=== PATIENT | female | born 1935 | race Caucasian/White ===

== ENCOUNTER 2017-03-17 11:14 | Emergency (ER) | payer MEDICARE, MEDICAID ==
[~2017-03-17] VITALS: Ht 157.5 cm; Wt 65.0 kg
[~2017-03-17 11:14] MED LIST: ASPI-518 PO; ATEN-42 PO; ATOR10TA69 PO; CALC0.5C10 PO; DOCU-150 PO; ERGO500013 PO; FURO40TA5 PO; GABA-531 PO; LEVEMIR SUBCUT; LEVVL SQ; LISI-186 PO; MECL-109 PO; NOVOLOG INSULIN SUBCUT; RIVA10TA PO
[2017-03-17 12:55] LABS: BASOPHILS % 0.2 % (0.0-2.0); EOSINOPHILS % 0.6 % (0.0-5.0); HEMATOCRIT. 31.9 % (36.0-48.0); HEMOGLOBIN. 10.7 g/dL (12.0-16.0); LYMPHOCYTES % 10.2 % (20.0-50.0); MEAN CORPUSCULAR HEMOGLOBIN 32.9 pg (28.0-32.0); MEAN CORPUSCULAR VOLUME 97.7 fL (81.0-99.0); MONOCYTES % 10.1 % (2.0-8.0); NEUTROPHILS % 78.9 % (40.0-76.0); PLATELET 185 x1000/uL (130-400); RED BLOOD CELL COUNT 3.26 mill/uL (4.2-5.4); RED CELL DISTRIBUTION WIDTH 12.5 % (11.6-14.6)
[2017-03-17] MEDS ORDERED: ACETAMINOPHEN 325MG TABLET PO ONE (14:00)
[2017-03-17] MEDS ORDERED: DEXTROSE 50% WATER 50ML SYRINGE IV ONE (14:00)
[2017-03-17 16:48] LABS: CLARITY URINE CLEAR (CLEAR); COLOR URINE YELLOW (YELLOW); KETONES URINE NEGATIVE (NEGATIVE); LEUKOCYTE ESTERASE URINE NEGATIVE (NEGATIVE); NITRITE URINE NEGATIVE (NEGATIVE); OCCULT BLOOD URINE NEGATIVE (NEGATIVE); PROTEIN URINE NEGATIVE (NEGATIVE); SPECIFIC GRAVITY URINE 1.019 (1.005-1.030)
[2017-03-17] MEDS ORDERED: CEFTRIAXONE SODIUM 1 G/VIAL IM NR (17:00)
[2017-03-17] MEDS ORDERED: DEXTROSE 50% WATER 50ML SYRINGE IV NR (17:00)
[2017-03-17] MEDS ORDERED: LIDOCAINE HCL 1% 10 MG/ML 10ML VIAL INJ NR (17:15)
[2017-03-17 17:34] VITALS: BP 124/52
== END 2017-03-17 17:37 | disposition home or self-care (01) ==
LOC: ER 11:14
DX: S92.411A Displaced fracture of proximal phalanx of right great toe, initial encounter for closed fracture (principal); T38.3X5A Adverse effect of insulin and oral hypoglycemic [antidiabetic] drugs, initial encounter; E16.0 Drug-induced hypoglycemia without coma; E11.9 Type 2 diabetes mellitus without complications; J18.9 Pneumonia, unspecified organism; J44.0 Chronic obstructive pulmonary disease with (acute) lower respiratory infection; I50.9 Heart failure, unspecified; I48.91 Unspecified atrial fibrillation; Z79.82 Long term (current) use of aspirin; Z79.4 Long term (current) use of insulin; W01.0XXA Fall on same level from slipping, tripping and stumbling without subsequent striking against object, initial encounter; Y93.89 Activity, other specified; Y92.89 Other specified places as the place of occurrence of the external cause; Y99.8 Other external cause status
CPT/HCPCS: 36415; 70450; 71045; 73060; 73620; 80048; 81003; 82962; 85025; 87040; 87086; 87804; 99285

== ENCOUNTER 2017-12-05 07:30 | Inpatient (IN) | payer MEDICARE, MEDICAID ==
[~2017-12-05] VITALS: Ht 165.1 cm; Wt 70.8 kg
[2017-12-05 08:11] LABS: HEMATOCRIT. 36.4 % (36.0-48.0); HEMOGLOBIN. 12.4 g/dL (12.0-16.0); MEAN CORPUSCULAR HEMOGLOBIN 33.6 pg (28.0-32.0); MEAN CORPUSCULAR VOLUME 98.3 fL (81.0-99.0); MEAN PLATELET VOLUME 7.1 fl (7.4-10.4); PLATELET 186 x1000/uL (130-400); RED CELL DISTRIBUTION WIDTH 12.4 % (11.6-14.6)
[2017-12-05 08:16] LABS: CHLORIDE 103 mEq/L (98-107)
[2017-12-05 08:27] LABS: CREATINE KINASE 134 IU/L (26-192)
[2017-12-05 08:58] LABS: INR 1.1; PROTHROMBIN TIME 11.3 sec (9.1-11.1)
[2017-12-05] MEDS: IPRATROPIUM/ALBUTEROL 0.5-3(2.5)MG/3ML NEB INH SCH ×2 (09:00→21:49)
[2017-12-05 09:44] LABS: PLATELET ESTIMATE NORMAL
[2017-12-05] MEDS ORDERED: ONDANSETRON HCL 4MG/2ML INJ IV PRN (10:15)
[2017-12-05] MEDS ORDERED: CLONIDINE 0.1MG TABLET PO PRN (10:15)
[2017-12-05 12:00] VITALS: BP 159/69
[2017-12-05] MEDS: LISINOPRIL 5MG TABLET PO SCH (12:00)
[2017-12-05] MEDS: ATENOLOL 25MG TABLET PO SCH (13:49)
[2017-12-05] MEDS: GABAPENTIN 100MG CAPSULE PO SCH ×2 (13:50→22:00)
[2017-12-05] MEDS: DEXT 5%/0.45% NACL 1000ML 1,000 ML IV SCH (13:55)
[2017-12-05] MEDS ORDERED: LEVOFLOXACIN 500MG PREMIX 100 ML IV NR (14:00)
[2017-12-05 14:55] VITALS: BP 159/69
[2017-12-05] MEDS ORDERED: DEXTROSE 50% WATER 50ML SYRINGE IV PRN (15:45)
[2017-12-05 16:00] VITALS: BP 136/77
[2017-12-05 16:01] LABS: T4 FREE 1.2 ng/dL (0.76-1.46)
[2017-12-05 16:02] LABS: CREATINE KINASE MB FRACTION 1.6 ng/mL (0.5-3.6)
[2017-12-05] MEDS: MORPHINE SULFATE 4 MG/ML CPJ (NOT FOR IM USE) IV PRN (17:26)
[2017-12-05] MEDS: BLOOD SUGAR DIAGNOSTIC STRIP TEST SCH ×2 (17:29→20:42)
[2017-12-05] MEDS: INSULIN LISPRO 100 UNITS/ML SUBCUT SCH ×2 (18:22→21:25)
[2017-12-05 20:00] VITALS: BP 125/53
[2017-12-05] MEDS: ATORVASTATIN CALCIUM 10MG TABLET PO SCH (20:35)
[2017-12-05] MEDS ORDERED: INSULIN GLARGINE UD 100 UNITS/ML SYR SUBCUT SCH (22:00)
[2017-12-05] MEDS ORDERED: LORAZEPAM 0.5MG TABLET PO PRN (23:00)
[2017-12-05] MEDS ORDERED: LORAZEPAM 2MG/ML CPJ IV PRN (23:13)
[2017-12-05] MEDS: INSULIN GLARGINE UD 100 UNITS/ML SYR SUBCUT SCH (23:47)
[2017-12-05 23:51] LABS: CREATINE KINASE MB FRACTION 1.3 ng/mL (0.5-3.6)
[2017-12-06] VITALS: BP 114/40
[2017-12-06 04:00] VITALS: BP 123/53
[2017-12-06] MEDS: GABAPENTIN 100MG CAPSULE PO SCH ×3 (06:00→21:49)
[2017-12-06 06:37] LABS: BASOPHILS % 0.3 % (0.0-2.0); HEMATOCRIT. 34.5 % (36.0-48.0); HEMOGLOBIN. 11.8 g/dL (12.0-16.0); MEAN CORPUSCULAR HEMOGLOBIN 33.5 pg (28.0-32.0); MEAN CORPUSCULAR VOLUME 98.2 fL (81.0-99.0); MEAN PLATELET VOLUME 7.6 fl (7.4-10.4); MONOCYTES % 7.5 % (2.0-8.0); NEUTROPHILS % 76.2 % (40.0-76.0); PLATELET 164 x1000/uL (130-400); RED BLOOD CELL COUNT 3.51 mill/uL (4.2-5.4); RED CELL DISTRIBUTION WIDTH 12.3 % (11.6-14.6)
[2017-12-06] MEDS: MORPHINE SULFATE 4 MG/ML CPJ (NOT FOR IM USE) IV PRN (07:00)
[2017-12-06] MEDS: BLOOD SUGAR DIAGNOSTIC STRIP TEST SCH ×4 (07:03→21:40)
[2017-12-06 07:04] LABS: CHLORIDE 101 mEq/L (98-107)
[2017-12-06] MEDS: INSULIN LISPRO 100 UNITS/ML SUBCUT SCH ×4 (07:05→21:50)
[2017-12-06 07:13] LABS: LDL CHOLESTEROL 69 mg/dL (5-100)
[2017-12-06 07:14] LABS: CREATINE KINASE 85 IU/L (26-192); HDL CHOLESTEROL 46 mg/dL (40-59)
[2017-12-06 07:18] LABS: CREATINE KINASE MB FRACTION 1.1 ng/mL (0.5-3.6)
[2017-12-06 08:00] VITALS: BP 126/51
[2017-12-06] MEDS: DEXT 5%/0.45% NACL 1000ML 1,000 ML IV SCH (08:00)
[2017-12-06] MEDS: ATENOLOL 25MG TABLET PO SCH (08:17)
[2017-12-06] MEDS: LISINOPRIL 5MG TABLET PO SCH (08:17)
[2017-12-06] MEDS: INSULIN GLARGINE UD 100 UNITS/ML SYR SUBCUT SCH ×2 (09:30→21:51)
[2017-12-06] MEDS: ENOXAPARIN 30MG/0.3ML SYR SUBCUT SCH (10:30)
[2017-12-06 12:00] VITALS: BP 150/48
[2017-12-06] MEDS ORDERED: LEVOFLOXACIN 250MG PREMIX 50 ML IV SCH (13:00)
[2017-12-06] MEDS: LEVOFLOXACIN 250MG PREMIX 50 ML IV SCH (13:22)
[2017-12-06] MEDS: IPRATROPIUM/ALBUTEROL 0.5-3(2.5)MG/3ML NEB INH SCH ×2 (13:43→21:22)
[2017-12-06] MEDS ORDERED: BUPIVACAINE HCL/PF 0.25% (2.5MG/ML) 10ML ONE (14:18)
[2017-12-06] MEDS ORDERED: BUPIVACAINE HCL/EPINEPHRINE/PF 0.5%/0.0005 10ML ONE (14:18)
[2017-12-06] MEDS ORDERED: BACITRACIN ZINC 15GM TUBE TOP ONE (14:18)
[2017-12-06] MEDS ORDERED: NORMAL SALINE 0.9% 10 ML SYR ONE (14:19)
[2017-12-06] MEDS ORDERED: VANCOMYCIN HCL 500 MG/VIAL ONE (14:19)
[2017-12-06] MEDS ORDERED: BACITRACIN 50,000 UNITS/VIAL ONE (14:20)
[2017-12-06] MEDS ORDERED: FENTANYL CITRATE/PF 50MCG/ML 2ML VIAL ONE (14:58)
[2017-12-06] MEDS ORDERED: PROPOFOL 200MG/20ML VIAL IV ONE (14:58)
[2017-12-06] MEDS ORDERED: MIDAZOLAM HCL 2 MG/2 ML VIAL ONE (14:58)
[2017-12-06] MEDS ORDERED: ONDANSETRON HCL 4MG/2ML INJ ONE (14:59)
[2017-12-06] MEDS ORDERED: DEXAMETHASONE 4MG/ML 1ML VIAL ONE (14:59)
[2017-12-06] MEDS ORDERED: MEPERIDINE HCL/PF 25MG/ML CPJ IV PRN (16:15)
[2017-12-06] MEDS ORDERED: ONDANSETRON HCL 4MG/2ML INJ IV PRN (16:15)
[2017-12-06] MEDS ORDERED: LABETALOL 5MG/ML SYR 20 MG/4 ML SYRINGE IV PRN (16:15)
[2017-12-06] MEDS ORDERED: HYDROMORPHONE HCL/PF 2MG/ML CPJ IV PRN ×2 (16:15→16:30)
[2017-12-06 20:00] VITALS: BP 113/55
[2017-12-06] MEDS: ATORVASTATIN CALCIUM 10MG TABLET PO SCH (21:31)
[2017-12-06] MEDS: CEFAZOLIN 1000MG PREMIX 50 ML IV SCH (21:32)
[2017-12-06] MEDS: ACETAMINOPHEN 325MG TABLET PO PRN (21:47)
[2017-12-06] MEDS ORDERED: CEFAZOLIN SODIUM 1000MG/VIAL IV SCH (22:00)
[2017-12-07] VITALS: BP 108/48
[2017-12-07] MEDS: DEXT 5%/0.45% NACL 1000ML 1,000 ML IV SCH (00:29)
[2017-12-07] MEDS: IPRATROPIUM/ALBUTEROL 0.5-3(2.5)MG/3ML NEB INH SCH ×4 (01:45→20:22)
[2017-12-07 04:00] VITALS: BP 126/44
[2017-12-07] MEDS: GABAPENTIN 100MG CAPSULE PO SCH ×3 (06:03→23:13)
[2017-12-07] MEDS: CEFAZOLIN 1000MG PREMIX 50 ML IV SCH ×3 (06:03→23:14)
[2017-12-07 06:25] LABS: BASOPHILS % 0.5 % (0.0-2.0); EOSINOPHILS % 1.5 % (0.0-5.0); HEMATOCRIT. 28.9 % (36.0-48.0); HEMOGLOBIN. 10.4 g/dL (12.0-16.0); LYMPHOCYTES % 10.8 % (20.0-50.0); MEAN CORPUSCULAR HEMOGLOBIN 35.1 pg (28.0-32.0); MEAN CORPUSCULAR VOLUME 97.9 fL (81.0-99.0); MEAN PLATELET VOLUME 7.6 fl (7.4-10.4); MONOCYTES % 8.6 % (2.0-8.0); NEUTROPHILS % 78.6 % (40.0-76.0); PLATELET 148 x1000/uL (130-400); RED BLOOD CELL COUNT 2.95 mill/uL (4.2-5.4); RED CELL DISTRIBUTION WIDTH 12.3 % (11.6-14.6)
[2017-12-07] MEDS: BLOOD SUGAR DIAGNOSTIC STRIP TEST SCH ×4 (06:27→22:15)
[2017-12-07] MEDS: INSULIN LISPRO 100 UNITS/ML SUBCUT SCH ×4 (06:54→23:18)
[2017-12-07 08:00] VITALS: BP 119/60
[2017-12-07] MEDS: ENOXAPARIN 30MG/0.3ML SYR SUBCUT SCH (09:20)
[2017-12-07] MEDS: LISINOPRIL 5MG TABLET PO SCH (09:20)
[2017-12-07] MEDS: ATENOLOL 25MG TABLET PO SCH (09:20)
[2017-12-07] MEDS: INSULIN GLARGINE UD 100 UNITS/ML SYR SUBCUT SCH ×2 (09:28→23:21)
[2017-12-07 12:00] VITALS: BP 125/64
[2017-12-07] MEDS: LEVOFLOXACIN 250MG PREMIX 50 ML IV SCH (12:30)
[2017-12-07 16:00] VITALS: BP 105/45
[2017-12-07 20:00] VITALS: BP 119/43
[2017-12-07 20:01] LABS: AMMONIA 24 uMol/L (<32)
[2017-12-07 20:05] LABS: T4 FREE 1.65 ng/dL (0.76-1.46)
[2017-12-07 21:43] LABS: FOLIC ACID (FOLATE) SERUM >20 ng/mL ng/mL (>5.38)
[2017-12-07 21:55] LABS: VITAMIN B12 SERUM 283 pg/mL (211-911)
[2017-12-07] MEDS: ATORVASTATIN CALCIUM 10MG TABLET PO SCH (23:22)
[2017-12-08] VITALS: BP 119/48
[2017-12-08] MEDS: IPRATROPIUM/ALBUTEROL 0.5-3(2.5)MG/3ML NEB INH SCH ×4 (00:16→21:44)
[2017-12-08 04:00] VITALS: BP 109/49
[2017-12-08 06:56] LABS: BASOPHILS % 0.4 % (0.0-2.0); EOSINOPHILS % 3.2 % (0.0-5.0); HEMATOCRIT. 27.9 % (36.0-48.0); HEMOGLOBIN. 9.9 g/dL (12.0-16.0); MEAN CORPUSCULAR VOLUME 98.9 fL (81.0-99.0); MEAN PLATELET VOLUME 7.8 fl (7.4-10.4); MONOCYTES % 7.3 % (2.0-8.0); NEUTROPHILS % 74.1 % (40.0-76.0); PLATELET 142 x1000/uL (130-400); RED BLOOD CELL COUNT 2.82 mill/uL (4.2-5.4); RED CELL DISTRIBUTION WIDTH 12.1 % (11.6-14.6)
[2017-12-08] MEDS: BLOOD SUGAR DIAGNOSTIC STRIP TEST SCH ×4 (07:33→22:00)
[2017-12-08] MEDS: GABAPENTIN 100MG CAPSULE PO SCH ×3 (07:50→22:40)
[2017-12-08] MEDS: CEFAZOLIN 1000MG PREMIX 50 ML IV SCH ×3 (07:50→22:40)
[2017-12-08] MEDS: INSULIN LISPRO 100 UNITS/ML SUBCUT SCH ×3 (07:58→18:03)
[2017-12-08 08:00] VITALS: BP 129/47
[2017-12-08] MEDS: HYDROCODONE/ACETAMINOPHEN 10/325MG TABLET PO PRN (08:09)
[2017-12-08] MEDS: LISINOPRIL 5MG TABLET PO SCH (09:06)
[2017-12-08] MEDS: ENOXAPARIN 30MG/0.3ML SYR SUBCUT SCH (09:07)
[2017-12-08] MEDS: ATENOLOL 25MG TABLET PO SCH (09:07)
[2017-12-08] MEDS: INSULIN GLARGINE UD 100 UNITS/ML SYR SUBCUT SCH (10:26)
[2017-12-08 12:00] VITALS: BP 93/46
[2017-12-08] MEDS: LEVOFLOXACIN 250MG PREMIX 50 ML IV SCH (14:12)
[2017-12-08] MEDS: ACETAMINOPHEN 325MG TABLET PO PRN (14:24)
[2017-12-08 16:00] VITALS: BP 97/47
[2017-12-08] MEDS: LACTULOSE 20G/30ML UDC PO SCH ×2 (17:42→22:40)
[2017-12-08] MEDS: CYANOCOBALAMIN 1000MCG/ML VIAL IM SCH (17:43)
[2017-12-08 20:00] VITALS: BP 104/46
[2017-12-08] MEDS: ATORVASTATIN CALCIUM 10MG TABLET PO SCH (22:40)
[2017-12-09] VITALS: BP 129/54
[2017-12-09] MEDS: INSULIN LISPRO 100 UNITS/ML SUBCUT SCH ×5 (00:03→23:09)
[2017-12-09] MEDS: IPRATROPIUM/ALBUTEROL 0.5-3(2.5)MG/3ML NEB INH SCH ×4 (01:05→21:12)
[2017-12-09 04:00] VITALS: BP 125/52
[2017-12-09] MEDS: GABAPENTIN 100MG CAPSULE PO SCH ×3 (07:00→21:33)
[2017-12-09] MEDS: BLOOD SUGAR DIAGNOSTIC STRIP TEST SCH ×4 (07:02→21:33)
[2017-12-09] MEDS ORDERED: CYANOCOBALAMIN 1000MCG TABLET PO SCH (07:50)
[2017-12-09 07:52] LABS: BASOPHILS % 0.4 % (0.0-2.0); EOSINOPHILS % 3.9 % (0.0-5.0); HEMATOCRIT. 28.3 % (36.0-48.0); HEMOGLOBIN. 9.8 g/dL (12.0-16.0); LYMPHOCYTES % 13.5 % (20.0-50.0); MEAN CORPUSCULAR HEMOGLOBIN 33.8 pg (28.0-32.0); MEAN CORPUSCULAR VOLUME 98.1 fL (81.0-99.0); MEAN PLATELET VOLUME 7.7 fl (7.4-10.4); MONOCYTES % 7.1 % (2.0-8.0); NEUTROPHILS % 75.1 % (40.0-76.0); PLATELET 153 x1000/uL (130-400); RED BLOOD CELL COUNT 2.89 mill/uL (4.2-5.4); RED CELL DISTRIBUTION WIDTH 12.2 % (11.6-14.6)
[2017-12-09 08:00] VITALS: BP 126/53
[2017-12-09] MEDS: LISINOPRIL 5MG TABLET PO SCH (08:55)
[2017-12-09] MEDS: ATENOLOL 25MG TABLET PO SCH (08:56)
[2017-12-09] MEDS: LACTULOSE 20G/30ML UDC PO SCH ×6 (08:56→21:00)
[2017-12-09] MEDS: CYANOCOBALAMIN 1000MCG/ML VIAL IM SCH (08:57)
[2017-12-09] MEDS: ENOXAPARIN 30MG/0.3ML SYR SUBCUT SCH (08:57)
[2017-12-09] MEDS ORDERED: NA PHOS,M-B/NA PHOS,DI-BA ENEMA 118ML PR NR (10:00)
[2017-12-09] MEDS: INSULIN GLARGINE UD 100 UNITS/ML SYR SUBCUT SCH ×3 (10:15→23:04)
[2017-12-09 12:00] VITALS: BP 117/48
[2017-12-09] MEDS: HYDROCODONE/ACETAMINOPHEN 10/325MG TABLET PO PRN (12:56)
[2017-12-09] MEDS: LEVOFLOXACIN 250MG PREMIX 50 ML IV SCH (12:58)
[2017-12-09 16:00] VITALS: BP 109/49
[2017-12-09 20:00] VITALS: BP 107/47
[2017-12-09] MEDS: ATORVASTATIN CALCIUM 10MG TABLET PO SCH (21:33)
[2017-12-10] VITALS: BP 98/37
[2017-12-10] MEDS: IPRATROPIUM/ALBUTEROL 0.5-3(2.5)MG/3ML NEB INH SCH ×3 (02:01→14:52)
[2017-12-10 04:00] VITALS: BP 113/41
[2017-12-10] MEDS: BLOOD SUGAR DIAGNOSTIC STRIP TEST SCH ×2 (06:59→12:20)
[2017-12-10] MEDS: GABAPENTIN 100MG CAPSULE PO SCH ×2 (07:07→14:13)
[2017-12-10] MEDS: INSULIN LISPRO 100 UNITS/ML SUBCUT SCH ×2 (07:50→14:22)
[2017-12-10 08:00] VITALS: BP 122/64
[2017-12-10] MEDS ORDERED: NA PHOS,M-B/NA PHOS,DI-BA ENEMA 118ML PR PRN (09:00)
[2017-12-10] MEDS: LACTULOSE 20G/30ML UDC PO SCH ×2 (09:28→12:04)
[2017-12-10] MEDS: ENOXAPARIN 30MG/0.3ML SYR SUBCUT SCH (09:29)
[2017-12-10] MEDS: CYANOCOBALAMIN 1000MCG/ML VIAL IM SCH (09:30)
[2017-12-10] MEDS: LISINOPRIL 5MG TABLET PO SCH (09:30)
[2017-12-10] MEDS: ATENOLOL 25MG TABLET PO SCH (09:30)
[2017-12-10] MEDS: INSULIN GLARGINE UD 100 UNITS/ML SYR SUBCUT SCH (09:48)
[2017-12-10] MEDS: HYDROCODONE/ACETAMINOPHEN 10/325MG TABLET PO PRN (10:17)
[2017-12-10 12:00] VITALS: BP 115/54
[2017-12-10] MEDS ORDERED: LEVOFLOXACIN 250MG TABLET PO SCH (13:00)
[2017-12-10 13:42] VITALS: BP 115/44
== END 2017-12-10 15:42 | DRG 480 ==
LOC: ER 07:30 → 6EST 09:31 → EDBEDREQ 09:33 → EDBEDREQTM 09:33 → EDBEDREQSVC 09:33 → ENRESERV 10:32 → 6EST 11:40
PROVIDERS: ADMIT Internal Medicine Nephrology; ATTEND Internal Medicine Nephrology
PROC: 4B02XSZ Measurement of Cardiac Pacemaker, External Approach (ICD-10-PCS; 2017-12-05)
PROC: 0QS604Z Reposition Right Upper Femur with Internal Fixation Device, Open Approach (ICD-10-PCS; principal; 2017-12-06 15:00)
DX: S72.144A Nondisplaced intertrochanteric fracture of right femur, initial encounter for closed fracture (principal); G92 Toxic encephalopathy; I13.0 Hypertensive heart and chronic kidney disease with heart failure and stage 1 through stage 4 chronic kidney disease, or unspecified chronic kidney disease; R17 Unspecified jaundice; F03.90 Unspecified dementia, unspecified severity, without behavioral disturbance, psychotic disturbance, mood disturbance, and anxiety; D64.9 Anemia, unspecified; E11.65 Type 2 diabetes mellitus with hyperglycemia; I50.9 Heart failure, unspecified; N18.9 Chronic kidney disease, unspecified; E78.5 Hyperlipidemia, unspecified; E11.22 Type 2 diabetes mellitus with diabetic chronic kidney disease; I25.10 Atherosclerotic heart disease of native coronary artery without angina pectoris; E86.0 Dehydration; R26.9 Unspecified abnormalities of gait and mobility; W01.0XXA Fall on same level from slipping, tripping and stumbling without subsequent striking against object, initial encounter; I48.2 Chronic atrial fibrillation; Z86.73 Personal history of transient ischemic attack (TIA), and cerebral infarction without residual deficits; Z95.0 Presence of cardiac pacemaker; Y93.89 Activity, other specified; Y92.89 Other specified places as the place of occurrence of the external cause; Y99.8 Other external cause status
CPT/HCPCS: 36415; 70450; 71045; 73502; 73503; 73552; 78580; 80048; 80053; 80061; 82140; 82550; 82553; 82607; 82746; 82962; 83036; 83735; 83880; 84100; 84439; 84443; 84481; 84484; 85025; 85379; 85610; 86850; 86900; 87040; 93005; 93306; 93880; 93970; 94640; 97110; 97162; 97166; 97530; 99285; A4216; C1713; J0171; J0690; J1100; J1170; J1650; J1815; J1956; J2060; J2250; J2270; J2405; J2704; J3010; J3370; J3420; J3490; J7040; J7050; J7620; A4315

== ENCOUNTER 2018-01-29 13:22 | Inpatient (IN) | payer MEDICARE, MEDICAID ==
[~2018-01-29] VITALS: Ht 165.1 cm; Wt 71.7 kg
[~2018-01-29 13:22] MED LIST changes: -ASPI-518 PO; -CALC0.5C10 PO; -DOCU-150 PO; -FURO40TA5 PO; -GABA-531 PO; -LEVEMIR SUBCUT; -LEVVL SQ; -MECL-109 PO; -NOVOLOG INSULIN SUBCUT; -RIVA10TA PO
[2018-01-29 16:23] LABS: BASOPHILS % 0.4 % (0.0-2.0); EOSINOPHILS % 3.7 % (0.0-5.0); HEMATOCRIT. 34.4 % (36.0-48.0); HEMOGLOBIN. 11.8 g/dL (12.0-16.0); LYMPHOCYTES % 16.8 % (20.0-50.0); MEAN CORPUSCULAR HEMOGLOBIN 33.9 pg (28.0-32.0); MEAN CORPUSCULAR VOLUME 98.5 fL (81.0-99.0); MEAN PLATELET VOLUME 7.6 fl (7.4-10.4); MONOCYTES % 6.1 % (2.0-8.0); PLATELET 203 x1000/uL (130-400); RED BLOOD CELL COUNT 3.49 mill/uL (4.2-5.4); RED CELL DISTRIBUTION WIDTH 12.8 % (11.6-14.6)
[2018-01-29 16:27] LABS: CHLORIDE 98 mEq/L (98-107)
[2018-01-29] MEDS ORDERED: PERMETHRIN 5% CREAM 60GM TOP ONE (16:45)
[2018-01-29] MEDS ORDERED: SODIUM CHLORIDE 0.9% 1,000 ML IV ONE (17:02)
[2018-01-29] MEDS ORDERED: DEXT 5%/0.45% NACL 1000ML 1,000 ML IV SCH (17:34)
[2018-01-29] MEDS ORDERED: IPRATROPIUM/ALBUTEROL 0.5-3(2.5)MG/3ML NEB INH SCH (17:45)
[2018-01-29] MEDS ORDERED: ONDANSETRON HCL 4MG/2ML INJ IV PRN (17:45)
[2018-01-29] MEDS ORDERED: DOCUSATE SODIUM 100MG CAPSULE PO PRN (17:45)
[2018-01-29] MEDS ORDERED: LEVOFLOXACIN 500MG PREMIX 100 ML IV SCH (17:45)
[2018-01-29] MEDS ORDERED: ENOXAPARIN 40MG/0.4ML SYR SUBCUT SCH (17:45)
[2018-01-29] MEDS ORDERED: ACETAMINOPHEN 325MG TABLET PO PRN (17:45)
[2018-01-29 17:46] LABS: CLARITY URINE TURBID (CLEAR); COLOR URINE YELLOW (YELLOW); KETONES URINE NEGATIVE (NEGATIVE); LEUKOCYTE ESTERASE URINE 3+ (NEGATIVE); NITRITE URINE NEGATIVE (NEGATIVE); OCCULT BLOOD URINE 1+ (NEGATIVE); PH URINE 5.5 (4.5-8.0); PROTEIN URINE NEGATIVE (NEGATIVE); SPECIFIC GRAVITY URINE 1.013 (1.005-1.030); UROBILINOGEN URINE 0.2 E.U./dL (0.2-1.0)
[2018-01-29] MEDS ORDERED: CEFTRIAXONE 1 G PREMIX 50 ML IV ONE (18:45)
[2018-01-30] VITALS (7 sets, daily range): BP systolic 101–150; BP diastolic 45–69
[2018-01-30] MEDS ORDERED: DEXTROSE 50% WATER 50ML SYRINGE IV PRN (00:15)
[2018-01-30] MEDS: LORAZEPAM 2MG/ML CPJ IV PRN (02:18)
[2018-01-30] MEDS: DEXT 5%/0.45% NACL 1000ML 1,000 ML IV SCH ×2 (02:19→21:52)
[2018-01-30] MEDS ORDERED: LEVOFLOXACIN 500MG PREMIX 100 ML IV NR (05:00)
[2018-01-30] MEDS: BLOOD SUGAR DIAGNOSTIC STRIP TEST SCH ×4 (05:30→21:01)
[2018-01-30 06:40] LABS: BASOPHILS % 0.6 % (0.0-2.0); EOSINOPHILS % 6.6 % (0.0-5.0); HEMATOCRIT. 31.7 % (36.0-48.0); LYMPHOCYTES % 22.1 % (20.0-50.0); MEAN CORPUSCULAR HEMOGLOBIN 33.9 pg (28.0-32.0); MEAN CORPUSCULAR VOLUME 97.4 fL (81.0-99.0); MEAN PLATELET VOLUME 7.7 fl (7.4-10.4); MONOCYTES % 8.7 % (2.0-8.0); PLATELET 201 x1000/uL (130-400); RED BLOOD CELL COUNT 3.26 mill/uL (4.2-5.4); RED CELL DISTRIBUTION WIDTH 12.8 % (11.6-14.6)
[2018-01-30 06:50] LABS: CHLORIDE 103 mEq/L (98-107)
[2018-01-30] MEDS ORDERED: INSULIN LISPRO 100 UNITS/ML SUBCUT SCH ×2 (07:40→12:10)
[2018-01-30] MEDS ORDERED: POTASSIUM CHLORIDE INJ 40 MEQ in DEXT 5% WATER 500 ML IV SCH (09:00)
[2018-01-30] MEDS: ENOXAPARIN 30MG/0.3ML SYR SUBCUT SCH (09:40)
[2018-01-30] MEDS: ATENOLOL 25MG TABLET PO SCH (13:00)
[2018-01-30] MEDS: LISINOPRIL 10MG TABLET PO SCH ×2 (13:01→21:01)
[2018-01-30] MEDS: INSULIN LISPRO (CUSTOM DOSE) 100 UNITS/ML SUBCUT SCH ×3 (13:28→21:55)
[2018-01-30] MEDS: INSULIN LISPRO 100 UNITS/ML SUBCUT SCH ×2 (13:29→17:10)
[2018-01-30] MEDS: CYANOCOBALAMIN 1000MCG TABLET PO SCH (16:00)
[2018-01-30 17:29] LABS: T4 FREE 1.4 ng/dL (0.76-1.46)
[2018-01-30 17:36] LABS: FOLIC ACID (FOLATE) SERUM >20 ng/mL ng/mL (>5.38)
[2018-01-30 20:08] LABS: VITAMIN B12 SERUM 556 pg/mL (211-911)
[2018-01-30] MEDS: DONEPEZIL HCL 5MG TABLET PO SCH (21:01)
[2018-01-30] MEDS: ATORVASTATIN CALCIUM 20MG TABLET PO SCH (21:01)
[2018-01-30] MEDS: QUETIAPINE FUMARATE 25MG TABLET PO SCH (21:01)
[2018-01-30] MEDS: INSULIN GLARGINE UD 100 UNITS/ML SYR SUBCUT SCH (21:54)
[2018-01-31] VITALS (7 sets, daily range): BP systolic 101–132; BP diastolic 55–88
[2018-01-31] MEDS: LORAZEPAM 2MG/ML CPJ IV PRN (01:36)
[2018-01-31] MEDS: BLOOD SUGAR DIAGNOSTIC STRIP TEST SCH ×4 (06:06→21:00)
[2018-01-31] MEDS: INSULIN LISPRO 100 UNITS/ML SUBCUT SCH ×3 (06:06→17:29)
[2018-01-31] MEDS: CYANOCOBALAMIN 1000MCG TABLET PO SCH ×2 (07:40→13:16)
[2018-01-31] MEDS: IPRATROPIUM/ALBUTEROL 0.5-3(2.5)MG/3ML NEB INH SCH ×4 (07:42→20:14)
[2018-01-31] MEDS: LISINOPRIL 10MG TABLET PO SCH ×2 (08:59→21:32)
[2018-01-31] MEDS: ENOXAPARIN 30MG/0.3ML SYR SUBCUT SCH (08:59)
[2018-01-31] MEDS: ATENOLOL 25MG TABLET PO SCH (09:00)
[2018-01-31] MEDS: QUETIAPINE FUMARATE 25MG TABLET PO SCH ×3 (09:00→21:33)
[2018-01-31 10:43] LABS: BASOPHILS % 0.6 % (0.0-2.0); EOSINOPHILS % 5.9 % (0.0-5.0); HEMATOCRIT. 33.2 % (36.0-48.0); HEMOGLOBIN. 11.4 g/dL (12.0-16.0); LYMPHOCYTES % 19.2 % (20.0-50.0); MEAN CORPUSCULAR HEMOGLOBIN 33.7 pg (28.0-32.0); MEAN CORPUSCULAR VOLUME 97.8 fL (81.0-99.0); MEAN PLATELET VOLUME 7.5 fl (7.4-10.4); MONOCYTES % 9.3 % (2.0-8.0); PLATELET 214 x1000/uL (130-400); RED BLOOD CELL COUNT 3.39 mill/uL (4.2-5.4); RED CELL DISTRIBUTION WIDTH 12.6 % (11.6-14.6)
[2018-01-31] MEDS ORDERED: LEVOFLOXACIN 500MG TABLET PO SCH (11:00)
[2018-01-31 11:24] LABS: PHOSPHORUS 2.4 mg/dL (2.5-4.9)
[2018-01-31 11:33] LABS: T4 FREE 1.63 ng/dL (0.76-1.46)
[2018-01-31] MEDS: LEVOFLOXACIN 250MG PREMIX 50 ML IV SCH (12:09)
[2018-01-31] MEDS: INSULIN LISPRO (CUSTOM DOSE) 100 UNITS/ML SUBCUT SCH ×3 (12:11→22:20)
[2018-01-31] MEDS: ATORVASTATIN CALCIUM 20MG TABLET PO SCH (21:32)
[2018-01-31] MEDS: DONEPEZIL HCL 5MG TABLET PO SCH (21:33)
[2018-01-31] MEDS: INSULIN GLARGINE UD 100 UNITS/ML SYR SUBCUT SCH (22:20)
[2018-01-31] MEDS: DEXT 5%/0.45% NACL 1000ML 1,000 ML IV SCH (22:25)
[2018-02-01] VITALS (7 sets, daily range): BP systolic 99–118; BP diastolic 39–64
[2018-02-01] MEDS: IPRATROPIUM/ALBUTEROL 0.5-3(2.5)MG/3ML NEB INH SCH ×5 (02:12→20:57)
[2018-02-01] MEDS: BLOOD SUGAR DIAGNOSTIC STRIP TEST SCH ×4 (06:23→21:00)
[2018-02-01] MEDS: LEVOFLOXACIN 250MG PREMIX 50 ML IV SCH (06:36)
[2018-02-01] MEDS: INSULIN LISPRO (CUSTOM DOSE) 100 UNITS/ML SUBCUT SCH ×2 (06:40→18:11)
[2018-02-01] MEDS: INSULIN LISPRO 100 UNITS/ML SUBCUT SCH ×3 (06:40→17:10)
[2018-02-01 06:51] LABS: BASOPHILS % 0.7 % (0.0-2.0); HEMATOCRIT. 30.8 % (36.0-48.0); HEMOGLOBIN. 10.8 g/dL (12.0-16.0); LYMPHOCYTES % 26.1 % (20.0-50.0); MEAN CORPUSCULAR HEMOGLOBIN 34.4 pg (28.0-32.0); MEAN CORPUSCULAR VOLUME 98.2 fL (81.0-99.0); MEAN PLATELET VOLUME 7.7 fl (7.4-10.4); MONOCYTES % 8.4 % (2.0-8.0); NEUTROPHILS % 58.8 % (40.0-76.0); PLATELET 201 x1000/uL (130-400); RED BLOOD CELL COUNT 3.13 mill/uL (4.2-5.4); RED CELL DISTRIBUTION WIDTH 12.7 % (11.6-14.6)
[2018-02-01] MEDS: CYANOCOBALAMIN 1000MCG TABLET PO SCH (07:40)
[2018-02-01] MEDS: LISINOPRIL 10MG TABLET PO SCH ×2 (09:00→22:27)
[2018-02-01] MEDS: QUETIAPINE FUMARATE 25MG TABLET PO SCH ×2 (09:00→22:27)
[2018-02-01] MEDS: ENOXAPARIN 30MG/0.3ML SYR SUBCUT SCH (09:58)
[2018-02-01] MEDS: ATENOLOL 25MG TABLET PO SCH (09:59)
[2018-02-01] MEDS ORDERED: INSULIN LISPRO 100 UNITS/ML SUBCUT NR (12:38)
[2018-02-01] MEDS: INSULIN GLARGINE UD 100 UNITS/ML SYR SUBCUT SCH (22:00)
[2018-02-01] MEDS: ATORVASTATIN CALCIUM 20MG TABLET PO SCH (22:27)
[2018-02-01] MEDS: DONEPEZIL HCL 5MG TABLET PO SCH (22:28)
[2018-02-02] VITALS: BP 148/64
[2018-02-02] MEDS: IPRATROPIUM/ALBUTEROL 0.5-3(2.5)MG/3ML NEB INH SCH ×4 (01:13→21:11)
[2018-02-02 04:00] VITALS: BP 134/72
[2018-02-02] MEDS: INSULIN LISPRO 100 UNITS/ML SUBCUT SCH ×3 (07:10→17:29)
[2018-02-02] MEDS: INSULIN LISPRO (CUSTOM DOSE) 100 UNITS/ML SUBCUT SCH ×3 (07:10→17:28)
[2018-02-02] MEDS: BLOOD SUGAR DIAGNOSTIC STRIP TEST SCH ×4 (07:10→19:52)
[2018-02-02 08:00] VITALS: BP 138/59
[2018-02-02] MEDS: LEVOFLOXACIN 250MG PREMIX 50 ML IV SCH (08:11)
[2018-02-02] MEDS: ATENOLOL 25MG TABLET PO SCH (09:01)
[2018-02-02] MEDS: QUETIAPINE FUMARATE 25MG TABLET PO SCH ×2 (09:03→21:06)
[2018-02-02] MEDS: CYANOCOBALAMIN 1000MCG TABLET PO SCH (09:03)
[2018-02-02] MEDS: LISINOPRIL 10MG TABLET PO SCH ×2 (09:04→21:06)
[2018-02-02 12:00] VITALS: BP 132/68
[2018-02-02] MEDS: LEVOFLOXACIN 500MG TABLET PO SCH (12:09)
[2018-02-02 13:08] LABS: BASOPHILS % 0.2 % (0.0-2.0); EOSINOPHILS % 0.1 % (0.0-5.0); HEMATOCRIT. 33.8 % (36.0-48.0); HEMOGLOBIN. 11.6 g/dL (12.0-16.0); LYMPHOCYTES % 9.6 % (20.0-50.0); MEAN CORPUSCULAR HEMOGLOBIN 33.7 pg (28.0-32.0); MEAN CORPUSCULAR VOLUME 97.7 fL (81.0-99.0); MEAN PLATELET VOLUME 7.6 fl (7.4-10.4); MONOCYTES % 6.3 % (2.0-8.0); NEUTROPHILS % 83.8 % (40.0-76.0); PLATELET 209 x1000/uL (130-400); RED BLOOD CELL COUNT 3.45 mill/uL (4.2-5.4); RED CELL DISTRIBUTION WIDTH 12.8 % (11.6-14.6)
[2018-02-02 16:00] VITALS: BP 123/48
[2018-02-02 20:00] VITALS: BP 126/57
[2018-02-02] MEDS: ATORVASTATIN CALCIUM 20MG TABLET PO SCH (21:05)
[2018-02-02] MEDS: DONEPEZIL HCL 5MG TABLET PO SCH (21:05)
[2018-02-02] MEDS: INSULIN GLARGINE UD 100 UNITS/ML SYR SUBCUT SCH (21:11)
[2018-02-03] VITALS: BP_SYST 138; BP_DIAS 49; BP_DIAS 50
[2018-02-03] MEDS: IPRATROPIUM/ALBUTEROL 0.5-3(2.5)MG/3ML NEB INH SCH ×3 (01:33→20:16)
[2018-02-03 04:00] VITALS: BP 157/65
[2018-02-03] MEDS: BLOOD SUGAR DIAGNOSTIC STRIP TEST SCH ×4 (05:55→20:45)
[2018-02-03] MEDS: INSULIN LISPRO (CUSTOM DOSE) 100 UNITS/ML SUBCUT SCH ×3 (06:23→17:10)
[2018-02-03] MEDS: INSULIN LISPRO 100 UNITS/ML SUBCUT SCH ×3 (06:23→17:10)
[2018-02-03 08:00] VITALS: BP 121/55
[2018-02-03] MEDS: LISINOPRIL 10MG TABLET PO SCH ×2 (09:33→21:00)
[2018-02-03] MEDS: CYANOCOBALAMIN 1000MCG TABLET PO SCH (09:33)
[2018-02-03] MEDS: ATENOLOL 25MG TABLET PO SCH (09:33)
[2018-02-03] MEDS: QUETIAPINE FUMARATE 25MG TABLET PO SCH ×2 (09:33→21:53)
[2018-02-03 12:00] VITALS: BP 113/46
[2018-02-03] MEDS: LEVOFLOXACIN 500MG TABLET PO SCH (12:12)
[2018-02-03 16:00] VITALS: BP 101/51
[2018-02-03 20:00] VITALS: BP 111/46
[2018-02-03] MEDS: DONEPEZIL HCL 5MG TABLET PO SCH (21:53)
[2018-02-03] MEDS: ATORVASTATIN CALCIUM 20MG TABLET PO SCH (21:54)
[2018-02-03] MEDS: INSULIN GLARGINE UD 100 UNITS/ML SYR SUBCUT SCH (21:59)
[2018-02-04] VITALS: BP 116/52
[2018-02-04] MEDS: IPRATROPIUM/ALBUTEROL 0.5-3(2.5)MG/3ML NEB INH SCH ×4 (02:01→20:59)
[2018-02-04 04:00] VITALS: BP 103/53
[2018-02-04] MEDS: BLOOD SUGAR DIAGNOSTIC STRIP TEST SCH ×4 (05:38→20:29)
[2018-02-04] MEDS: INSULIN LISPRO (CUSTOM DOSE) 100 UNITS/ML SUBCUT SCH ×3 (06:43→17:28)
[2018-02-04 06:54] LABS: BASOPHILS % 0.6 % (0.0-2.0); EOSINOPHILS % 3.4 % (0.0-5.0); HEMATOCRIT. 30.6 % (36.0-48.0); HEMOGLOBIN. 10.6 g/dL (12.0-16.0); LYMPHOCYTES % 24.6 % (20.0-50.0); MEAN CORPUSCULAR VOLUME 98.5 fL (81.0-99.0); MEAN PLATELET VOLUME 7.6 fl (7.4-10.4); NEUTROPHILS % 62.4 % (40.0-76.0); PLATELET 184 x1000/uL (130-400); RED BLOOD CELL COUNT 3.11 mill/uL (4.2-5.4); RED CELL DISTRIBUTION WIDTH 12.9 % (11.6-14.6)
[2018-02-04] MEDS: INSULIN LISPRO 100 UNITS/ML SUBCUT SCH ×3 (07:10→17:29)
[2018-02-04 08:00] VITALS: BP 100/51
[2018-02-04 08:25] LABS: T4 FREE 1.47 ng/dL (0.76-1.46)
[2018-02-04] MEDS: CYANOCOBALAMIN 1000MCG TABLET PO SCH (08:31)
[2018-02-04] MEDS: QUETIAPINE FUMARATE 25MG TABLET PO SCH (08:31)
[2018-02-04] MEDS: ATENOLOL 25MG TABLET PO SCH (08:45)
[2018-02-04] MEDS: LISINOPRIL 10MG TABLET PO SCH ×2 (08:46→21:40)
[2018-02-04] MEDS: LEVOFLOXACIN 500MG TABLET PO SCH (11:04)
[2018-02-04 12:00] VITALS: BP 120/53
[2018-02-04 16:00] VITALS: BP 122/57
[2018-02-04 20:00] VITALS: BP 125/50
[2018-02-04] MEDS: ATORVASTATIN CALCIUM 20MG TABLET PO SCH (21:41)
[2018-02-04] MEDS: DONEPEZIL HCL 5MG TABLET PO SCH (21:41)
[2018-02-04] MEDS: INSULIN GLARGINE UD 100 UNITS/ML SYR SUBCUT SCH (21:42)
[2018-02-05] VITALS (7 sets, daily range): BP systolic 110–138; BP diastolic 48–62
[2018-02-05] MEDS: IPRATROPIUM/ALBUTEROL 0.5-3(2.5)MG/3ML NEB INH SCH ×4 (01:09→21:55)
[2018-02-05] MEDS: BLOOD SUGAR DIAGNOSTIC STRIP TEST SCH ×4 (05:59→21:00)
[2018-02-05] MEDS: INSULIN LISPRO 100 UNITS/ML SUBCUT SCH ×3 (06:58→17:10)
[2018-02-05] MEDS: INSULIN LISPRO (CUSTOM DOSE) 100 UNITS/ML SUBCUT SCH ×3 (06:58→17:28)
[2018-02-05] MEDS: ATENOLOL 25MG TABLET PO SCH (09:00)
[2018-02-05] MEDS ORDERED: PERMETHRIN 5% CREAM 60GM TOP NR (09:00)
[2018-02-05] MEDS: LISINOPRIL 10MG TABLET PO SCH ×2 (09:00→21:11)
[2018-02-05] MEDS: CYANOCOBALAMIN 1000MCG TABLET PO SCH (09:46)
[2018-02-05] MEDS: LEVOFLOXACIN 500MG TABLET PO SCH (11:58)
[2018-02-05 12:53] LABS: BASOPHILS % 0.5 % (0.0-2.0); EOSINOPHILS % 2.4 % (0.0-5.0); HEMATOCRIT. 32.8 % (36.0-48.0); HEMOGLOBIN. 11.3 g/dL (12.0-16.0); LYMPHOCYTES % 17.7 % (20.0-50.0); MEAN CORPUSCULAR HEMOGLOBIN 33.6 pg (28.0-32.0); MEAN CORPUSCULAR VOLUME 97.9 fL (81.0-99.0); MEAN PLATELET VOLUME 7.7 fl (7.4-10.4); MONOCYTES % 8.9 % (2.0-8.0); NEUTROPHILS % 70.5 % (40.0-76.0); PLATELET 197 x1000/uL (130-400); RED BLOOD CELL COUNT 3.35 mill/uL (4.2-5.4); RED CELL DISTRIBUTION WIDTH 12.8 % (11.6-14.6)
[2018-02-05] MEDS: ATORVASTATIN CALCIUM 20MG TABLET PO SCH (21:11)
[2018-02-05] MEDS: DONEPEZIL HCL 5MG TABLET PO SCH (21:12)
[2018-02-05] MEDS: INSULIN GLARGINE UD 100 UNITS/ML SYR SUBCUT SCH (21:53)
[2018-02-06] MEDS ORDERED: MEGESTROL ACETATE 400 MG/10 ML UDC PO SCH (09:00)
== END 2018-02-05 22:50 | DRG 682 ==
LOC: ER 15:26 → 6EST 17:32 → ENRESERV 20:30 → ER 23:01 → 8WST 01-30 01:10
PROVIDERS: ADMIT Internal Medicine Nephrology; ATTEND Internal Medicine Nephrology
DX: N17.9 Acute kidney failure, unspecified (principal); G92 Toxic encephalopathy; E43 Unspecified severe protein-calorie malnutrition; N39.0 Urinary tract infection, site not specified; E87.1 Hypo-osmolality and hyponatremia; E87.2 Acidosis; F03.90 Unspecified dementia, unspecified severity, without behavioral disturbance, psychotic disturbance, mood disturbance, and anxiety; E86.9 Volume depletion, unspecified; B96.1 Klebsiella pneumoniae [K. pneumoniae] as the cause of diseases classified elsewhere; B96.89 Other specified bacterial agents as the cause of diseases classified elsewhere; D64.9 Anemia, unspecified; E03.9 Hypothyroidism, unspecified; E11.22 Type 2 diabetes mellitus with diabetic chronic kidney disease; E78.00 Pure hypercholesterolemia, unspecified; E87.5 Hyperkalemia; G47.30 Sleep apnea, unspecified; G89.4 Chronic pain syndrome; I12.9 Hypertensive chronic kidney disease with stage 1 through stage 4 chronic kidney disease, or unspecified chronic kidney disease; I25.10 Atherosclerotic heart disease of native coronary artery without angina pectoris; I48.91 Unspecified atrial fibrillation; K44.9 Diaphragmatic hernia without obstruction or gangrene; N18.9 Chronic kidney disease, unspecified; Z96.649 Presence of unspecified artificial hip joint; M48.00 Spinal stenosis, site unspecified; E87.6 Hypokalemia; R33.9 Retention of urine, unspecified; Z87.81 Personal history of (healed) traumatic fracture; Z90.49 Acquired absence of other specified parts of digestive tract; Z95.0 Presence of cardiac pacemaker; Z91.81 History of falling; Z68.26 Body mass index [BMI] 26.0-26.9, adult; B85.2 Pediculosis, unspecified
CPT/HCPCS: 36415; 80048; 82140; 82607; 82746; 82962; 83036; 83735; 84100; 84439; 84443; 84481; 87186; 92610; 94640; 96365; 96375; 97116; 97162; 97166; 97530; 99285; C1893; J0696; J1650; J1815; J1956; J2060; J3480; J7050; J7060; J7620; A4315

== ENCOUNTER 2022-02-22 13:00 | Inpatient (IN) | payer MEDICARE, MEDICAID ==
[~2022-02-22] VITALS: Ht 121.9 cm; Wt 41.3 kg
[2022-02-22] MEDS ORDERED: ACETAMINOPHEN 325MG TABLET PO PRN (13:30)
[2022-02-22] MEDS ORDERED: ONDANSETRON HCL 4MG/2ML INJ IV PRN (13:30)
[2022-02-22] MEDS ORDERED: CLONIDINE 0.1MG TABLET PO PRN (13:30)
[2022-02-22] MEDS ORDERED: PIPERACILLIN/TAZ 3.375G PREMIX 50 ML IV NR ×2 (14:30→21:45)
[2022-02-22] MEDS ORDERED: VANCOMYCIN 1G PREMIX 200 ML IV NR (15:00)
[2022-02-22] MEDS ORDERED: NALOXONE HCL 0.4MG/ML VIAL IV PRN (15:30)
[2022-02-22 15:42] LABS: BASOPHILS % 0.6 % (0.0-2.0); HEMATOCRIT. 33.3 % (36.0-48.0); HEMOGLOBIN. 11.4 g/dL (12.0-16.0); MEAN CORPUSCULAR HEMOGLOBIN 33.5 pg (28.0-32.0); MEAN CORPUSCULAR VOLUME 98.3 fL (81.0-99.0); MEAN PLATELET VOLUME 6.8 fl (7.4-10.4); MONOCYTES % 8.9 % (2.0-8.0); NEUTROPHILS % 50.5 % (40.0-76.0); PLATELET 280 x1000/uL (130-400); RED BLOOD CELL COUNT 3.39 mill/uL (4.2-5.4); RED CELL DISTRIBUTION WIDTH 14.1 % (11.6-14.6)
[2022-02-22 15:43] LABS: CHLORIDE 103 mEq/L (98-107)
[2022-02-22] MEDS: LISINOPRIL 5MG TABLET PO SCH (17:51)
[2022-02-22] MEDS: ATORVASTATIN CALCIUM 10MG TABLET PO SCH (21:51)
[2022-02-22] MEDS ORDERED: PIPERACILLIN/TAZOBACTAM 3.375 G in DEXTROSE 5% WATER 50 ML IV SCH (22:00)
[2022-02-22] MEDS ORDERED: INSULIN GLARGINE 100 UNITS/ML SUBCUT SCH (22:00)
[2022-02-23] VITALS (7 sets, daily range): BP systolic 93–136; BP diastolic 51–77
[2022-02-23] MEDS ORDERED: DEXTROSE 50% WATER 50ML SYRINGE IV PRN (02:45)
[2022-02-23] MEDS: PIPERACILLIN/TAZOBACTAM 3.375 G in DEXTROSE 5% WATER 50 ML IV SCH ×3 (05:49→22:00)
[2022-02-23] MEDS: BLOOD SUGAR DIAGNOSTIC STRIP TEST SCH ×4 (06:18→21:00)
[2022-02-23] MEDS: INSULIN LISPRO 100 UNITS/ML SUBCUT SCH ×4 (06:53→21:00)
[2022-02-23] MEDS: ATENOLOL 25MG TABLET PO SCH (10:22)
[2022-02-23] MEDS: LISINOPRIL 5MG TABLET PO SCH ×2 (10:22→17:13)
[2022-02-23 12:40] LABS: BASOPHILS % 0.8 % (0.0-2.0); EOSINOPHILS % 2.4 % (0.0-5.0); HEMATOCRIT. 34.9 % (36.0-48.0); HEMOGLOBIN. 11.9 g/dL (12.0-16.0); LYMPHOCYTES % 32.1 % (20.0-50.0); MEAN CORPUSCULAR HEMOGLOBIN 33.5 pg (28.0-32.0); MEAN PLATELET VOLUME 6.8 fl (7.4-10.4); MONOCYTES % 7.8 % (2.0-8.0); NEUTROPHILS % 56.9 % (40.0-76.0); PLATELET 295 x1000/uL (130-400); RED BLOOD CELL COUNT 3.56 mill/uL (4.2-5.4); RED CELL DISTRIBUTION WIDTH 14.5 % (11.6-14.6)
[2022-02-23 13:40] LABS: T4 FREE 1.24 ng/dL (0.76-1.46)
[2022-02-23 15:20] LABS: CHLORIDE 102 mEq/L (98-107)
[2022-02-23] MEDS: VANCOMYCIN 500MG PREMIX 100 ML IV SCH (17:13)
[2022-02-23 18:34] LABS: CREATINE KINASE 23 IU/L (26-192); CREATINE KINASE MB FRACTION < 1.0 ng/mL (0.5-3.6)
[2022-02-23] MEDS ORDERED: INSULIN GLARGINE 100 UNITS/ML SUBCUT SCH (22:00)
[2022-02-23] MEDS: ATORVASTATIN CALCIUM 10MG TABLET PO SCH (23:08)
[2022-02-24] VITALS: BP_SYST 125; BP_SYST 147; BP_DIAS 74; BP_DIAS 78
[2022-02-24 02:48] LABS: CREATINE KINASE 19 IU/L (26-192); CREATINE KINASE MB FRACTION < 1.0 ng/mL (0.5-3.6)
[2022-02-24 04:00] VITALS: BP 125/74
[2022-02-24] MEDS: PIPERACILLIN/TAZOBACTAM 3.375 G in DEXTROSE 5% WATER 50 ML IV SCH ×3 (06:18→21:16)
[2022-02-24 08:00] VITALS: BP 108/52
[2022-02-24 08:20] LABS: BASOPHILS % 0.7 % (0.0-2.0); EOSINOPHILS % 2.5 % (0.0-5.0); HEMATOCRIT. 29.8 % (36.0-48.0); HEMOGLOBIN. 10.3 g/dL (12.0-16.0); MEAN CORPUSCULAR VOLUME 98.2 fL (81.0-99.0); MEAN PLATELET VOLUME 6.7 fl (7.4-10.4); MONOCYTES % 11.2 % (2.0-8.0); NEUTROPHILS % 46.6 % (40.0-76.0); PLATELET 255 x1000/uL (130-400); RED BLOOD CELL COUNT 3.04 mill/uL (4.2-5.4); RED CELL DISTRIBUTION WIDTH 14.6 % (11.6-14.6)
[2022-02-24 08:28] LABS: CHLORIDE 105 mEq/L (98-107)
[2022-02-24 08:38] LABS: CREATINE KINASE 23 IU/L (26-192); CREATINE KINASE MB FRACTION < 1.0 ng/mL (0.5-3.6)
[2022-02-24] MEDS ORDERED: DEXT 5%/0.45% NACL 1000ML 1,000 ML IV SCH (08:45)
[2022-02-24 12:00] VITALS: BP 130/70
[2022-02-24] MEDS: BLOOD SUGAR DIAGNOSTIC STRIP TEST SCH ×3 (12:20→21:13)
[2022-02-24] MEDS: INSULIN LISPRO 100 UNITS/ML SUBCUT SCH ×3 (12:50→21:51)
[2022-02-24] MEDS ORDERED: IOHEXOL-350 100 ML BOTTLE ONE (15:48)
[2022-02-24 16:00] VITALS: BP 119/59
[2022-02-24] MEDS: VANCOMYCIN 500MG PREMIX 100 ML IV SCH (18:00)
[2022-02-24 20:00] VITALS: BP 132/53
[2022-02-24] MEDS: ATORVASTATIN CALCIUM 10MG TABLET PO SCH (21:13)
[2022-02-25] VITALS: BP 129/68
[2022-02-25 04:00] VITALS: BP 136/70
[2022-02-25] MEDS: PIPERACILLIN/TAZOBACTAM 3.375 G in DEXTROSE 5% WATER 50 ML IV SCH (06:10)
[2022-02-25] MEDS: BLOOD SUGAR DIAGNOSTIC STRIP TEST SCH ×4 (07:20→21:00)
[2022-02-25 07:50] LABS: BASOPHILS % 0.7 % (0.0-2.0); EOSINOPHILS % 2.5 % (0.0-5.0); HEMATOCRIT. 34.2 % (36.0-48.0); HEMOGLOBIN. 11.6 g/dL (12.0-16.0); MEAN CORPUSCULAR VOLUME 99.7 fL (81.0-99.0); MEAN PLATELET VOLUME 6.6 fl (7.4-10.4); MONOCYTES % 12.4 % (2.0-8.0); NEUTROPHILS % 46.4 % (40.0-76.0); PLATELET 257 x1000/uL (130-400); RED BLOOD CELL COUNT 3.43 mill/uL (4.2-5.4); RED CELL DISTRIBUTION WIDTH 14.7 % (11.6-14.6)
[2022-02-25] MEDS: INSULIN LISPRO 100 UNITS/ML SUBCUT SCH ×4 (07:50→22:20)
[2022-02-25 08:00] VITALS: BP 140/82
[2022-02-25 08:04] LABS: CHLORIDE 105 mEq/L (98-107)
[2022-02-25] MEDS: ATENOLOL 25MG TABLET PO SCH ×2 (09:00→10:41)
[2022-02-25] MEDS: LISINOPRIL 5MG TABLET PO SCH ×3 (09:00→19:10)
[2022-02-25] MEDS: HYDROCODONE/ACETAMINOPHEN 5/325MG TABLET PO PRN (10:42)
[2022-02-25] MEDS ORDERED: NA PHOS,M-B/NA PHOS,DI-BA ENEMA 118ML PR NR (12:00)
[2022-02-25] MEDS: FUROSEMIDE 20MG TABLET PO SCH (15:06)
[2022-02-25] MEDS: CEFAZOLIN 2,000 MG in DEXT 5% WATER 100 ML IV SCH ×2 (15:07→23:06)
[2022-02-25] MEDS: SODIUM CHLORIDE 0.45% 1,000 ML IV SCH (20:15)
[2022-02-25 22:00] VITALS: BP 114/48
[2022-02-25] MEDS: INSULIN GLARGINE 100 UNITS/ML SUBCUT SCH (22:00)
[2022-02-25] MEDS: ATORVASTATIN CALCIUM 10MG TABLET PO SCH (22:21)
[2022-02-26] VITALS: BP 111/48
[2022-02-26 04:00] VITALS: BP 130/76
[2022-02-26] MEDS: CEFAZOLIN 2,000 MG in DEXT 5% WATER 100 ML IV SCH ×3 (05:37→22:33)
[2022-02-26] MEDS: BLOOD SUGAR DIAGNOSTIC STRIP TEST SCH ×4 (07:20→21:44)
[2022-02-26] MEDS: INSULIN LISPRO 100 UNITS/ML SUBCUT SCH ×4 (07:50→21:57)
[2022-02-26 08:00] VITALS: BP 145/83
[2022-02-26 08:06] LABS: BASOPHILS % 0.6 % (0.0-2.0); EOSINOPHILS % 2.9 % (0.0-5.0); HEMATOCRIT. 31.7 % (36.0-48.0); LYMPHOCYTES % 33.7 % (20.0-50.0); MEAN CORPUSCULAR HEMOGLOBIN 34.1 pg (28.0-32.0); NEUTROPHILS % 51.8 % (40.0-76.0); PLATELET 249 x1000/uL (130-400); RED BLOOD CELL COUNT 3.23 mill/uL (4.2-5.4); RED CELL DISTRIBUTION WIDTH 14.8 % (11.6-14.6)
[2022-02-26 08:34] LABS: CHLORIDE 103 mEq/L (98-107)
[2022-02-26] MEDS ORDERED: NA PHOS,M-B/NA PHOS,DI-BA ENEMA 118ML PR NR (10:30)
[2022-02-26] MEDS: ATENOLOL 25MG TABLET PO SCH (10:42)
[2022-02-26] MEDS: LISINOPRIL 5MG TABLET PO SCH ×2 (10:42→18:30)
[2022-02-26] MEDS: FUROSEMIDE 20MG TABLET PO SCH (10:42)
[2022-02-26] MEDS: ASPIRIN 81MG TABLET PO SCH (10:42)
[2022-02-26] MEDS: HYDROCODONE/ACETAMINOPHEN 5/325MG TABLET PO PRN (10:44)
[2022-02-26 12:00] VITALS: BP 130/76
[2022-02-26 16:00] VITALS: BP 110/57
[2022-02-26 20:00] VITALS: BP 124/76
[2022-02-26] MEDS: ATORVASTATIN CALCIUM 10MG TABLET PO SCH (20:10)
[2022-02-26] MEDS: SODIUM CHLORIDE 0.45% 1,000 ML IV SCH (20:15)
[2022-02-26] MEDS: INSULIN GLARGINE 100 UNITS/ML SUBCUT SCH (22:00)
[2022-02-27] VITALS: BP 120/57
[2022-02-27 04:00] VITALS: BP 131/81
[2022-02-27] MEDS: CEFAZOLIN 2,000 MG in DEXT 5% WATER 100 ML IV SCH ×3 (05:44→21:56)
[2022-02-27] MEDS: BLOOD SUGAR DIAGNOSTIC STRIP TEST SCH ×4 (06:25→21:54)
[2022-02-27] MEDS: INSULIN LISPRO 100 UNITS/ML SUBCUT SCH ×4 (07:31→20:29)
[2022-02-27 08:00] VITALS: BP 125/75
[2022-02-27] MEDS: FUROSEMIDE 20MG TABLET PO SCH (09:44)
[2022-02-27] MEDS: LISINOPRIL 5MG TABLET PO SCH ×2 (09:44→16:46)
[2022-02-27] MEDS: ASPIRIN 81MG TABLET PO SCH (09:44)
[2022-02-27] MEDS: ATENOLOL 25MG TABLET PO SCH (09:45)
[2022-02-27 11:34] LABS: BASOPHILS % 0.6 % (0.0-2.0); EOSINOPHILS % 1.9 % (0.0-5.0); HEMATOCRIT. 28.9 % (36.0-48.0); LYMPHOCYTES % 25.6 % (20.0-50.0); MEAN CORPUSCULAR VOLUME 98.4 fL (81.0-99.0); MEAN PLATELET VOLUME 7.1 fl (7.4-10.4); MONOCYTES % 8.3 % (2.0-8.0); NEUTROPHILS % 63.6 % (40.0-76.0); PLATELET 261 x1000/uL (130-400); RED BLOOD CELL COUNT 2.93 mill/uL (4.2-5.4); RED CELL DISTRIBUTION WIDTH 15.1 % (11.6-14.6)
[2022-02-27 11:41] LABS: INR 1.1; PROTHROMBIN TIME 11.9 sec (9.6-11.0)
[2022-02-27 11:45] LABS: CHLORIDE 100 mEq/L (98-107)
[2022-02-27 12:00] VITALS: BP 152/63
[2022-02-27 16:00] VITALS: BP 103/70
[2022-02-27 20:00] VITALS: BP 100/49
[2022-02-27] MEDS: ATORVASTATIN CALCIUM 10MG TABLET PO SCH (20:20)
[2022-02-27] MEDS: INSULIN GLARGINE 100 UNITS/ML SUBCUT SCH (22:00)
[2022-02-28] VITALS: BP 116/59
[2022-02-28 04:00] VITALS: BP 126/72
[2022-02-28] MEDS: CEFAZOLIN 2,000 MG in DEXT 5% WATER 100 ML IV SCH ×3 (05:09→21:07)
[2022-02-28 07:12] LABS: BASOPHILS % 0.7 % (0.0-2.0); EOSINOPHILS % 1.9 % (0.0-5.0); HEMATOCRIT. 31.7 % (36.0-48.0); HEMOGLOBIN. 10.7 g/dL (12.0-16.0); LYMPHOCYTES % 32.5 % (20.0-50.0); MEAN CORPUSCULAR HEMOGLOBIN 33.3 pg (28.0-32.0); MEAN CORPUSCULAR VOLUME 99.1 fL (81.0-99.0); MEAN PLATELET VOLUME 6.9 fl (7.4-10.4); MONOCYTES % 10.4 % (2.0-8.0); NEUTROPHILS % 54.5 % (40.0-76.0); PLATELET 261 x1000/uL (130-400); RED CELL DISTRIBUTION WIDTH 15.4 % (11.6-14.6)
[2022-02-28] MEDS: BLOOD SUGAR DIAGNOSTIC STRIP TEST SCH ×4 (07:20→21:20)
[2022-02-28 07:50] LABS: CHLORIDE 103 mEq/L (98-107)
[2022-02-28] MEDS: INSULIN LISPRO 100 UNITS/ML SUBCUT SCH ×4 (07:50→21:13)
[2022-02-28 08:00] VITALS: BP 129/66
[2022-02-28] MEDS: ASPIRIN 81MG TABLET PO SCH (09:00)
[2022-02-28] MEDS: ATENOLOL 25MG TABLET PO SCH (09:00)
[2022-02-28] MEDS: FUROSEMIDE 20MG TABLET PO SCH (09:00)
[2022-02-28] MEDS: LISINOPRIL 5MG TABLET PO SCH ×2 (09:00→16:45)
[2022-02-28] MEDS: DEXT 5%/0.45% NACL 1000ML 1,000 ML IV SCH (09:35)
[2022-02-28] MEDS ORDERED: POLYMYXIN B SULFATE 500000 UNITS/VIAL ONE (11:05)
[2022-02-28] MEDS ORDERED: THROMBIN (BOVINE) 5000 UNITS/VIAL TOP ONE (11:05)
[2022-02-28] MEDS ORDERED: LIDOCAINE HCL 1% 20ML VIAL (Pyxis) INJ ONE (11:05)
[2022-02-28] MEDS ORDERED: BACITRACIN 15GM TUBE TOP ONE (11:06)
[2022-02-28] MEDS ORDERED: HEPARIN 100 UNITS/1 ML VIAL ONE (11:06)
[2022-02-28] MEDS ORDERED: HEPARIN SODIUM 1,000 UNIT/1ML VIAL IV ONE (11:06)
[2022-02-28] MEDS ORDERED: BUPIVACAINE HCL/PF 0.5% (5MG/ML) 30ML ONE (11:06)
[2022-02-28 12:00] VITALS: BP 145/82
[2022-02-28] MEDS ORDERED: IODIXANOL 320MG/ML 100 ML BOTTLE IV ONE (12:43)
[2022-02-28] MEDS ORDERED: FENTANYL CITRATE/PF 50MCG/ML 2ML VIAL ONE ×2 (12:51→14:19)
[2022-02-28] MEDS ORDERED: MIDAZOLAM HCL 2 MG/2 ML VIAL ONE (12:51)
[2022-02-28] MEDS ORDERED: HEPARIN 1000 UNITS/ML 10ML ONE (12:51)
[2022-02-28] MEDS ORDERED: PROPOFOL 200MG/20ML VIAL IV ONE (13:56)
[2022-02-28] MEDS ORDERED: NALOXONE HCL 0.4MG/ML VIAL IV PRN (15:00)
[2022-02-28] MEDS ORDERED: MORPHINE SULFATE 4 MG/ML CPJ (NOT FOR IM USE) IV PRN (15:00)
[2022-02-28 16:45] VITALS: BP 139/82
[2022-02-28 20:00] VITALS: BP 115/67
[2022-02-28] MEDS: ATORVASTATIN CALCIUM 10MG TABLET PO SCH (21:08)
[2022-02-28] MEDS: INSULIN GLARGINE 100 UNITS/ML SUBCUT SCH (22:00)
[2022-03-01] VITALS: BP 118/68
[2022-03-01 04:00] VITALS: BP 120/62
[2022-03-01] MEDS: CEFAZOLIN 2,000 MG in DEXT 5% WATER 100 ML IV SCH ×3 (06:38→21:41)
[2022-03-01] MEDS: BLOOD SUGAR DIAGNOSTIC STRIP TEST SCH ×4 (06:44→20:39)
[2022-03-01 07:36] LABS: BASOPHILS % 0.4 % (0.0-2.0); EOSINOPHILS % 0.8 % (0.0-5.0); HEMATOCRIT. 26.5 % (36.0-48.0); HEMOGLOBIN. 9.2 g/dL (12.0-16.0); LYMPHOCYTES % 26.2 % (20.0-50.0); MEAN CORPUSCULAR HEMOGLOBIN 34.6 pg (28.0-32.0); MONOCYTES % 13.8 % (2.0-8.0); NEUTROPHILS % 58.8 % (40.0-76.0); PLATELET 245 x1000/uL (130-400); RED BLOOD CELL COUNT 2.67 mill/uL (4.2-5.4); RED CELL DISTRIBUTION WIDTH 14.9 % (11.6-14.6)
[2022-03-01 08:00] VITALS: BP 148/85
[2022-03-01 08:04] LABS: CHLORIDE 99 mEq/L (98-107)
[2022-03-01] MEDS: ASPIRIN 81MG TABLET PO SCH (08:53)
[2022-03-01] MEDS: LISINOPRIL 5MG TABLET PO SCH ×2 (08:54→18:55)
[2022-03-01] MEDS: ATENOLOL 25MG TABLET PO SCH (08:54)
[2022-03-01] MEDS: FUROSEMIDE 20MG TABLET PO SCH (08:54)
[2022-03-01] MEDS: DEXT 5%/0.45% NACL 1000ML 1,000 ML IV SCH (09:11)
[2022-03-01] MEDS: INSULIN LISPRO 100 UNITS/ML SUBCUT SCH ×4 (09:11→21:00)
[2022-03-01 11:59] VITALS: BP 116/80
[2022-03-01] MEDS: ENOXAPARIN 30MG/0.3ML SYR SUBCUT SCH (15:00)
[2022-03-01 16:00] VITALS: BP 117/59
[2022-03-01 20:00] VITALS: BP 107/48
[2022-03-01] MEDS ORDERED: NA PHOS,M-B/NA PHOS,DI-BA ENEMA 118ML PR NR (20:30)
[2022-03-01] MEDS: ATORVASTATIN CALCIUM 10MG TABLET PO SCH (21:41)
[2022-03-01] MEDS: INSULIN GLARGINE 100 UNITS/ML SUBCUT SCH (21:56)
[2022-03-02] VITALS: BP 105/46
[2022-03-02 04:00] VITALS: BP_SYST 101; BP_SYST 117; BP_DIAS 47; BP_DIAS 59
[2022-03-02] MEDS: CEFAZOLIN 2,000 MG in DEXT 5% WATER 100 ML IV SCH (05:15)
[2022-03-02] MEDS: BLOOD SUGAR DIAGNOSTIC STRIP TEST SCH ×3 (06:30→18:10)
[2022-03-02] MEDS: INSULIN LISPRO 100 UNITS/ML SUBCUT SCH ×3 (07:50→17:50)
[2022-03-02 08:00] VITALS: BP 128/75
[2022-03-02] MEDS: FUROSEMIDE 20MG TABLET PO SCH (08:55)
[2022-03-02] MEDS: ASPIRIN 81MG TABLET PO SCH (08:55)
[2022-03-02] MEDS: ATENOLOL 25MG TABLET PO SCH (08:56)
[2022-03-02] MEDS: LISINOPRIL 5MG TABLET PO SCH ×2 (08:56→16:13)
[2022-03-02 12:00] VITALS: BP 108/54
[2022-03-02] MEDS: ENOXAPARIN 30MG/0.3ML SYR SUBCUT SCH (15:00)
[2022-03-02 16:00] VITALS: BP 102/46
[2022-03-02 20:00] VITALS: BP 110/62
== END 2022-03-02 21:30 | disposition home health service (06) | DRG 981 ==
LOC: ER 13:00 → 6EST 16:41 → EDBEDREQTM 16:42 → EDBEDREQ 16:42 → ENRESERV 23:43
PROVIDERS: ADMIT Internal Medicine Nephrology; ATTEND Internal Medicine Nephrology
PROC: 05HY33Z Insertion of Infusion Device into Upper Vein, Percutaneous Approach (ICD-10-PCS; 2022-02-26)
PROC: B54MZZA Ultrasonography of Right Upper Extremity Veins, Guidance (ICD-10-PCS; 2022-02-26)
PROC: 04JY0ZZ Inspection of Lower Artery, Open Approach (ICD-10-PCS; principal; 2022-02-28)
DX: T87.44 Infection of amputation stump, left lower extremity (principal); E43 Unspecified severe protein-calorie malnutrition; G93.41 Metabolic encephalopathy; I31.39 Other pericardial effusion (noninflammatory); I13.0 Hypertensive heart and chronic kidney disease with heart failure and stage 1 through stage 4 chronic kidney disease, or unspecified chronic kidney disease; I74.5 Embolism and thrombosis of iliac artery; L97.929 Non-pressure chronic ulcer of unspecified part of left lower leg with unspecified severity; Z20.822 Contact with and (suspected) exposure to COVID-19; E11.22 Type 2 diabetes mellitus with diabetic chronic kidney disease; E11.40 Type 2 diabetes mellitus with diabetic neuropathy, unspecified; E11.51 Type 2 diabetes mellitus with diabetic peripheral angiopathy without gangrene; E11.649 Type 2 diabetes mellitus with hypoglycemia without coma; E11.21 Type 2 diabetes mellitus with diabetic nephropathy; F02.80 Dementia in other diseases classified elsewhere, unspecified severity, without behavioral disturbance, psychotic disturbance, mood disturbance, and anxiety; G30.9 Alzheimer's disease, unspecified; N18.2 Chronic kidney disease, stage 2 (mild); I48.91 Unspecified atrial fibrillation; I25.10 Atherosclerotic heart disease of native coronary artery without angina pectoris; E78.5 Hyperlipidemia, unspecified; I50.9 Heart failure, unspecified; I70.202 Unspecified atherosclerosis of native arteries of extremities, left leg; K59.00 Constipation, unspecified; Y83.5 Amputation of limb(s) as the cause of abnormal reaction of the patient, or of later complication, without mention of misadventure at the time of the procedure; Z96.649 Presence of unspecified artificial hip joint; Z89.611 Acquired absence of right leg above knee; Z89.612 Acquired absence of left leg above knee; Z95.0 Presence of cardiac pacemaker; Z79.899 Other long term (current) drug therapy
CPT/HCPCS: 36415; 36573; 73560; 73700; 75635; 80048; 80053; 80061; 80202; 82550; 82553; 82962; 83036; 83880; 84439; 84443; 84484; 85025; 85379; 85651; 87070; 87077; 87186; 87426; 93306; 99285; C1725; J0690; J1642; J1644; J1815; J2250; J2543; J2704; J3010; J3370; J3490; J7060; Q9967

== ENCOUNTER 2022-03-31 09:11 | Inpatient (IN) | payer MEDICARE, MEDICAID ==
[~2022-03-31] VITALS: Ht 104.1 cm; Wt 40.8 kg
[2022-03-31] MEDS ORDERED: MORPHINE SULFATE 2 MG/ML CPJ (NOT FOR IM USE) IV PRN (09:45)
[2022-03-31] MEDS ORDERED: ACETAMINOPHEN 650MG/20.3ML UDC GT PRN (09:45)
[2022-03-31] MEDS ORDERED: CLONIDINE 0.1MG TABLET PO PRN (09:45)
[2022-03-31] MEDS ORDERED: ONDANSETRON HCL 4MG/2ML INJ IV PRN (09:45)
[2022-03-31] MEDS ORDERED: IPRATROPIUM BROMIDE (0.02%) 0.5MG/2.5ML NEB HHN STA (09:52)
[2022-03-31] MEDS ORDERED: ALBUTEROL (0.083%) 2.5MG/3ML NEB HHN STA (09:52)
[2022-03-31 10:00] LABS: BG BASE EXCESS -1.7 mmol/L (-2.0-2.0); BG CARBOXYHEMOGLOBIN 0.5 % (0.5-1.5); BG DEOXYHEMOGLOBIN 2.9 % (0.0-5.0); BG HCO3 ACT 23.6 mmol/L (22.0-26.0); BG METHEMOGLOBIN 0.3 % (0.0-1.5); BG OXYGEN SATURATION 97.1 % (92.0-98.5); BG OXYHEMOGLOBIN 96.3 % (94.0-97.0); BG PH 7.367 (7.350-7.450); BG PO2 94.8 mmHg (75.0-100.0); BG SAMPLE SITE RIGHT BRACHIAL; BG TOTAL HEMOGLOBIN 11.5 g/dL (12.0-18.0); BG VENT MODE NASAL CANNULA
[2022-03-31] MEDS ORDERED: FUROSEMIDE 40MG/4ML VIAL IVP ONE (10:00)
[2022-03-31] MEDS ORDERED: NALOXONE HCL 0.4MG/ML VIAL IV PRN (10:15)
[2022-03-31 10:29] LABS: BASOPHILS % 0.5 % (0.0-2.0); EOSINOPHILS % 0.6 % (0.0-5.0); HEMATOCRIT. 34.4 % (36.0-48.0); HEMOGLOBIN. 11.1 g/dL (12.0-16.0); LYMPHOCYTES % 24.1 % (20.0-50.0); MEAN CORPUSCULAR HEMOGLOBIN 35.1 pg (28.0-32.0); MEAN CORPUSCULAR VOLUME 108.9 fL (81.0-99.0); MEAN PLATELET VOLUME 7.3 fl (7.4-10.4); MONOCYTES % 6.6 % (2.0-8.0); NEUTROPHILS % 68.2 % (40.0-76.0); PLATELET 195 x1000/uL (130-400); RED BLOOD CELL COUNT 3.16 mill/uL (4.2-5.4); RED CELL DISTRIBUTION WIDTH 15.7 % (11.6-14.6)
[2022-03-31] MEDS ORDERED: VANCOMYCIN 1G PREMIX 200 ML IV NR (10:30)
[2022-03-31] MEDS ORDERED: PIPERACILLIN/TAZ 3.375G PREMIX 50 ML IV NR (10:30)
[2022-03-31 10:35] LABS: CHLORIDE 108 mEq/L (98-107)
[2022-03-31] MEDS ORDERED: IPRATROPIUM/ALBUTEROL 0.5-3(2.5)MG/3ML NEB NEB SCH (11:00)
[2022-03-31] MEDS ORDERED: IPRATROPIUM/ALBUTEROL 0.5-3(2.5)MG/3ML NEB HHN PRN (11:15)
[2022-03-31] MEDS: FUROSEMIDE 40MG/4ML VIAL IV SCH (11:31)
[2022-03-31] MEDS ORDERED: ENOXAPARIN 30MG/0.3ML SYR SUBCUT SCH (12:00)
[2022-03-31] MEDS ORDERED: ASPIRIN 325MG EC TABLET PO ONE (14:45)
[2022-03-31] MEDS ORDERED: IOHEXOL-350 100 ML BOTTLE ONE (14:47)
[2022-03-31] MEDS: ENOXAPARIN 40MG/0.4ML SYR SUBCUT SCH (15:23)
[2022-03-31] MEDS ORDERED: PIPERACILLIN/TAZOBACTAM 3.375 G in DEXTROSE 5% WATER 50 ML IV SCH (16:00)
[2022-03-31] MEDS ORDERED: ASPIRIN 81MG TABLET PO NR (16:15)
[2022-03-31] MEDS ORDERED: PIPERACILLIN/TAZ 3.375G PREMIX 50 ML IV SCH (17:00)
[2022-03-31 20:01] LABS: CLARITY URINE CLOUDY (CLEAR); COLOR URINE YELLOW (YELLOW); KETONES URINE NEGATIVE (NEGATIVE); LEUKOCYTE ESTERASE URINE 3+ (NEGATIVE); NITRITE URINE NEGATIVE (NEGATIVE); OCCULT BLOOD URINE 1+ (NEGATIVE); PH URINE 5.5 (4.5-8.0); PROTEIN URINE 1+ (NEGATIVE); SPECIFIC GRAVITY URINE 1.014 (1.005-1.030); UROBILINOGEN URINE 0.2 E.U./dL (0.2-1.0)
[2022-03-31 21:55] VITALS: BP 129/74
[2022-03-31] MEDS: BLOOD SUGAR DIAGNOSTIC STRIP TEST SCH (23:00)
[2022-03-31] MEDS: ATORVASTATIN CALCIUM 10MG TABLET PO SCH (23:04)
[2022-03-31] MEDS: INSULIN GLARGINE 100 UNITS/ML SUBCUT SCH (23:05)
[2022-03-31] MEDS: INSULIN LISPRO 100 UNITS/ML SUBCUT SCH (23:06)
[2022-04-01 00:30] VITALS: BP 148/71
[2022-04-01 04:00] VITALS: BP 132/76
[2022-04-01] MEDS: BLOOD SUGAR DIAGNOSTIC STRIP TEST SCH ×4 (05:34→20:48)
[2022-04-01] MEDS: PIPERACILLIN/TAZOBACTAM 3.375 G in DEXTROSE 5% WATER 50 ML IV SCH ×3 (05:41→20:48)
[2022-04-01] MEDS ORDERED: PIPERACILLIN/TAZOBACTAM 3.375 G in DEXTROSE 5% WATER 50 ML IV SCH (06:00)
[2022-04-01 06:41] LABS: INR 1.1; PROTHROMBIN TIME 11.8 sec (9.6-11.0)
[2022-04-01] MEDS: INSULIN LISPRO 100 UNITS/ML SUBCUT SCH ×4 (07:58→20:49)
[2022-04-01 08:00] VITALS: BP 146/78
[2022-04-01] MEDS ORDERED: CLOPIDOGREL 75MG TABLET PO SCH (09:00)
[2022-04-01] MEDS ORDERED: ASPIRIN 81MG TABLET PO SCH (09:00)
[2022-04-01] MEDS: FUROSEMIDE 40MG/4ML VIAL IV SCH (10:25)
[2022-04-01] MEDS: ATENOLOL 25MG TABLET PO SCH (11:08)
[2022-04-01] MEDS ORDERED: CARV6.2548 MT (11:24)
[2022-04-01] MEDS ORDERED: ZINC1CAP2 (11:24)
[2022-04-01] MEDS ORDERED: LOSA25TA26 MT (11:24)
[2022-04-01 12:00] VITALS: BP 136/73
[2022-04-01] MEDS: DEXTROSE 50% WATER 50ML SYRINGE IV PRN ×2 (12:26→12:28)
[2022-04-01] MEDS: ENOXAPARIN 40MG/0.4ML SYR SUBCUT SCH (13:40)
[2022-04-01] MEDS: ACETYLCYSTEINE 100MG/ML 10% VIAL 4ML INH SCH ×2 (13:46→21:32)
[2022-04-01 16:00] VITALS: BP 155/85
[2022-04-01] MEDS: NYSTATIN 100,000 UNITS/ML 5ML UDC SSW SCH (18:00)
[2022-04-01 20:00] VITALS: BP 153/89
[2022-04-01] MEDS ORDERED: ALBUTEROL (0.083%) 2.5MG/3ML NEB HHN PRN (20:45)
[2022-04-01] MEDS ORDERED: IPRATROPIUM BROMIDE (0.02%) 0.5MG/2.5ML NEB HHN PRN (20:45)
[2022-04-01] MEDS: GUAIFENESIN 600MG ER TABLET PO SCH (20:48)
[2022-04-01] MEDS: ATORVASTATIN CALCIUM 10MG TABLET PO SCH (20:48)
[2022-04-01] MEDS: INSULIN GLARGINE 100 UNITS/ML SUBCUT SCH (20:49)
[2022-04-01] MEDS ORDERED: INFLUENZA VACCINE 05/PF 0.5 ML SYRINGE IM ONE (21:00)
[2022-04-01] MEDS ORDERED: PNEUMOCOCCAL 23-VAL P-SAC VAC 0.5 ML IM ONE (21:00)
[2022-04-01] MEDS: IPRATROPIUM BROMIDE (0.02%) 0.5MG/2.5ML NEB HHN SCH (21:32)
[2022-04-01] MEDS: ALBUTEROL (0.083%) 2.5MG/3ML NEB HHN SCH (21:32)
[2022-04-02] VITALS: BP 146/81
[2022-04-02] MEDS ORDERED: VANCOMYCIN 500MG PREMIX 100 ML IV SCH
[2022-04-02] MEDS: ALBUTEROL (0.083%) 2.5MG/3ML NEB HHN SCH ×6 (00:58→20:45)
[2022-04-02] MEDS: IPRATROPIUM BROMIDE (0.02%) 0.5MG/2.5ML NEB HHN SCH ×6 (00:58→20:45)
[2022-04-02] MEDS: NYSTATIN 100,000 UNITS/ML 5ML UDC SSW SCH ×5 (01:02→23:27)
[2022-04-02 04:00] VITALS: BP 131/70
[2022-04-02] MEDS: PIPERACILLIN/TAZOBACTAM 3.375 G in DEXTROSE 5% WATER 50 ML IV SCH ×3 (05:16→23:27)
[2022-04-02] MEDS: BLOOD SUGAR DIAGNOSTIC STRIP TEST SCH ×4 (06:34→21:20)
[2022-04-02 07:46] LABS: HEMATOCRIT. 32.1 % (36.0-48.0); MEAN CORPUSCULAR HEMOGLOBIN 35.2 pg (28.0-32.0); MEAN CORPUSCULAR VOLUME 102.3 fL (81.0-99.0); MEAN PLATELET VOLUME 7.4 fl (7.4-10.4); PLATELET 202 x1000/uL (130-400); RED BLOOD CELL COUNT 3.14 mill/uL (4.2-5.4); RED CELL DISTRIBUTION WIDTH 14.5 % (11.6-14.6)
[2022-04-02 08:00] VITALS: BP 137/69
[2022-04-02] MEDS: ACETYLCYSTEINE 100MG/ML 10% VIAL 4ML INH SCH ×2 (09:16→16:36)
[2022-04-02] MEDS: GUAIFENESIN 600MG ER TABLET PO SCH ×2 (09:29→21:25)
[2022-04-02] MEDS: FUROSEMIDE 40MG/4ML VIAL IV SCH (09:30)
[2022-04-02] MEDS: ATENOLOL 25MG TABLET PO SCH (09:30)
[2022-04-02] MEDS: INSULIN LISPRO 100 UNITS/ML SUBCUT SCH ×4 (09:31→21:00)
[2022-04-02 10:50] LABS: PLATELET ESTIMATE NORMAL
[2022-04-02 12:00] VITALS: BP 98/52
[2022-04-02] MEDS: KCL 20MEQ/100ML PREMIX 100 ML IV NR (12:56)
[2022-04-02] MEDS: LOSARTAN POTASSIUM 25 MG TABLET PO SCH (12:57)
[2022-04-02 16:00] VITALS: BP 129/70
[2022-04-02] MEDS: ENOXAPARIN 40MG/0.4ML SYR SUBCUT SCH (17:15)
[2022-04-02 20:00] VITALS: BP 119/83
[2022-04-02] MEDS: CARVEDILOL 3.125 MG TABLET PO SCH ×2 (21:00→21:30)
[2022-04-02] MEDS: INSULIN GLARGINE 100 UNITS/ML SUBCUT SCH (21:22)
[2022-04-02] MEDS: ATORVASTATIN CALCIUM 10MG TABLET PO SCH (21:25)
[2022-04-03] VITALS: BP 122/60
[2022-04-03] MEDS: ACETYLCYSTEINE 100MG/ML 10% VIAL 4ML INH SCH (01:00)
[2022-04-03] MEDS: ALBUTEROL (0.083%) 2.5MG/3ML NEB HHN SCH ×5 (01:07→21:02)
[2022-04-03] MEDS: IPRATROPIUM BROMIDE (0.02%) 0.5MG/2.5ML NEB HHN SCH ×5 (01:07→21:01)
[2022-04-03] MEDS: KCL 20MEQ/100ML PREMIX 100 ML IV NR ×2 (02:00)
[2022-04-03 04:00] VITALS: BP 126/78
[2022-04-03] MEDS: BLOOD SUGAR DIAGNOSTIC STRIP TEST SCH ×4 (05:53→21:00)
[2022-04-03] MEDS: NYSTATIN 100,000 UNITS/ML 5ML UDC SSW SCH (06:02)
[2022-04-03] MEDS: PIPERACILLIN/TAZOBACTAM 3.375 G in DEXTROSE 5% WATER 50 ML IV SCH ×2 (06:03→14:50)
[2022-04-03 08:00] VITALS: BP 135/72
[2022-04-03] MEDS: GUAIFENESIN 600MG ER TABLET PO SCH (08:39)
[2022-04-03] MEDS: FUROSEMIDE 40MG/4ML VIAL IV SCH (08:39)
[2022-04-03] MEDS: LOSARTAN POTASSIUM 25 MG TABLET PO SCH (08:39)
[2022-04-03] MEDS: CARVEDILOL 3.125 MG TABLET PO SCH ×2 (08:42→23:19)
[2022-04-03] MEDS ORDERED: FLUCONAZOLE 100MG TABLET PO SCH (09:00)
[2022-04-03 10:04] LABS: HEMATOCRIT. 32.6 % (36.0-48.0); MEAN CORPUSCULAR HEMOGLOBIN 34.8 pg (28.0-32.0); MEAN CORPUSCULAR VOLUME 103.2 fL (81.0-99.0); MEAN PLATELET VOLUME 7.6 fl (7.4-10.4); PLATELET 206 x1000/uL (130-400); RED BLOOD CELL COUNT 3.16 mill/uL (4.2-5.4); RED CELL DISTRIBUTION WIDTH 14.2 % (11.6-14.6)
[2022-04-03 10:13] LABS: PHOSPHORUS 4.3 mg/dL (2.5-4.9)
[2022-04-03] MEDS ORDERED: NA PHOS,M-B/NA PHOS,DI-BA ENEMA 118ML PR NR (10:15)
[2022-04-03] MEDS ORDERED: ACETYLCYSTEINE 200MG/ML 20% VIAL 4ML PO SCH (10:17)
[2022-04-03 11:38] LABS: PLATELET ESTIMATE NORMAL
[2022-04-03 12:00] VITALS: BP 109/54
[2022-04-03] MEDS ORDERED: ACETYLCYSTEINE 200MG/ML 20% VIAL 4ML INH SCH (12:37)
[2022-04-03] MEDS ORDERED: VANCOMYCIN 1G PREMIX 200 ML IV SCH (13:00)
[2022-04-03] MEDS: INSULIN LISPRO 100 UNITS/ML SUBCUT SCH ×3 (13:16→23:24)
[2022-04-03 16:00] VITALS: BP 119/63
[2022-04-03 20:00] VITALS: BP 126/67
[2022-04-03] MEDS: ATORVASTATIN CALCIUM 10MG TABLET PO SCH (23:19)
[2022-04-03] MEDS: INSULIN GLARGINE 100 UNITS/ML SUBCUT SCH (23:23)
[2022-04-04] VITALS: BP 139/78
[2022-04-04] MEDS: ALBUTEROL (0.083%) 2.5MG/3ML NEB HHN SCH ×6 (00:21→21:08)
[2022-04-04] MEDS: IPRATROPIUM BROMIDE (0.02%) 0.5MG/2.5ML NEB HHN SCH ×6 (00:23→21:08)
[2022-04-04] MEDS: PIPERACILLIN/TAZOBACTAM 3.375 G in DEXTROSE 5% WATER 50 ML IV SCH ×2 (01:50→14:36)
[2022-04-04 04:00] VITALS: BP 122/64
[2022-04-04 06:50] LABS: BASOPHILS % 0.2 % (0.0-2.0); EOSINOPHILS % 0.1 % (0.0-5.0); HEMATOCRIT. 28.8 % (36.0-48.0); LYMPHOCYTES % 10.7 % (20.0-50.0); MEAN CORPUSCULAR HEMOGLOBIN 35.4 pg (28.0-32.0); MEAN PLATELET VOLUME 7.6 fl (7.4-10.4); MONOCYTES % 4.6 % (2.0-8.0); NEUTROPHILS % 84.4 % (40.0-76.0); PLATELET 200 x1000/uL (130-400); RED BLOOD CELL COUNT 2.82 mill/uL (4.2-5.4); RED CELL DISTRIBUTION WIDTH 14.2 % (11.6-14.6)
[2022-04-04 07:25] LABS: PHOSPHORUS 3.5 mg/dL (2.5-4.9)
[2022-04-04] MEDS: INSULIN LISPRO 100 UNITS/ML SUBCUT SCH ×4 (07:50→20:48)
[2022-04-04 08:00] VITALS: BP 139/80
[2022-04-04] MEDS: BLOOD SUGAR DIAGNOSTIC STRIP TEST SCH ×4 (08:01→20:49)
[2022-04-04] MEDS ORDERED: SODIUM BICARBONATE 4% (2.4MEQ) 5ML VIAL IV ONE (08:25)
[2022-04-04] MEDS ORDERED: LIDOCAINE HCL 1% 10 MG/ML 10ML VIAL ONE (08:29)
[2022-04-04] MEDS: GUAIFENESIN 600MG ER TABLET PO SCH (09:00)
[2022-04-04] MEDS ORDERED: POTASSIUM CHLORIDE INJ 60 MEQ in DEXT 5% WATER 500 ML IV NR (09:30)
[2022-04-04] MEDS ORDERED: LIDOCAINE HCL/PF 1% 10 MG/ML 5ML VIAL ONE (09:59)
[2022-04-04] MEDS ORDERED: IOHEXOL-300 50 ML BOTTLE IV ONE (10:07)
[2022-04-04] MEDS: CARVEDILOL 3.125 MG TABLET PO SCH ×2 (10:44→20:47)
[2022-04-04 12:00] VITALS: BP 119/68
[2022-04-04] MEDS: NYSTATIN 100,000 UNITS/ML 5ML UDC SSW SCH ×3 (13:27→23:55)
[2022-04-04] MEDS: GUAIFENESIN 200MG/10ML SUGAR FREE UDC PO SCH ×3 (13:27→23:55)
[2022-04-04] MEDS: FLUCONAZOLE 200MG/5ML ORAL SYR PO SCH (13:29)
[2022-04-04 16:00] VITALS: BP 118/71
[2022-04-04 20:00] VITALS: BP 115/69
[2022-04-04] MEDS: ATORVASTATIN CALCIUM 10MG TABLET PO SCH (20:45)
[2022-04-04] MEDS: INSULIN GLARGINE 100 UNITS/ML SUBCUT SCH (20:49)
[2022-04-05] VITALS: BP 122/65
[2022-04-05] MEDS: ALBUTEROL (0.083%) 2.5MG/3ML NEB HHN SCH ×4 (00:06→12:12)
[2022-04-05] MEDS: IPRATROPIUM BROMIDE (0.02%) 0.5MG/2.5ML NEB HHN SCH ×6 (00:06→21:55)
[2022-04-05] MEDS: PIPERACILLIN/TAZOBACTAM 3.375 G in DEXTROSE 5% WATER 50 ML IV SCH ×2 (01:45→14:22)
[2022-04-05 04:00] VITALS: BP 133/78
[2022-04-05] MEDS: GUAIFENESIN 200MG/10ML SUGAR FREE UDC PO SCH ×3 (05:50→18:06)
[2022-04-05] MEDS: NYSTATIN 100,000 UNITS/ML 5ML UDC SSW SCH ×3 (05:50→18:07)
[2022-04-05] MEDS: DEXTROSE 50% WATER 50ML SYRINGE IV PRN (06:34)
[2022-04-05 06:56] LABS: BASOPHILS % 0.1 % (0.0-2.0); EOSINOPHILS % 0.6 % (0.0-5.0); HEMATOCRIT. 27.8 % (36.0-48.0); HEMOGLOBIN. 9.6 g/dL (12.0-16.0); MEAN CORPUSCULAR HEMOGLOBIN 35.3 pg (28.0-32.0); MEAN CORPUSCULAR VOLUME 102.5 fL (81.0-99.0); MEAN PLATELET VOLUME 7.7 fl (7.4-10.4); MONOCYTES % 3.9 % (2.0-8.0); NEUTROPHILS % 82.4 % (40.0-76.0); PLATELET 186 x1000/uL (130-400); RED BLOOD CELL COUNT 2.71 mill/uL (4.2-5.4); RED CELL DISTRIBUTION WIDTH 14.2 % (11.6-14.6)
[2022-04-05] MEDS: INSULIN LISPRO 100 UNITS/ML SUBCUT SCH ×4 (07:37→21:00)
[2022-04-05] MEDS: BLOOD SUGAR DIAGNOSTIC STRIP TEST SCH ×4 (07:37→20:44)
[2022-04-05 08:00] VITALS: BP_SYST 123; BP_SYST 156; BP_DIAS 63; BP_DIAS 71
[2022-04-05] MEDS: FLUCONAZOLE 200MG/5ML ORAL SYR PO SCH (08:45)
[2022-04-05] MEDS: CARVEDILOL 3.125 MG TABLET PO SCH ×2 (08:47→21:16)
[2022-04-05] MEDS ORDERED: LACTULOSE 20G/30ML UDC PO NR (09:00)
[2022-04-05] MEDS ORDERED: NA PHOS,M-B/NA PHOS,DI-BA ENEMA 118ML PR NR (09:00)
[2022-04-05 09:13] LABS: PHOSPHORUS 2.8 mg/dL (2.5-4.9)
[2022-04-05] MEDS ORDERED: FUROSEMIDE 40MG/4ML VIAL IVP NR (11:45)
[2022-04-05 12:00] VITALS: BP 115/76
[2022-04-05 12:16] LABS: BG BASE EXCESS 3.8 mmol/L (-2.0-2.0); BG CARBOXYHEMOGLOBIN 0.3 % (0.5-1.5); BG DEOXYHEMOGLOBIN 1.9 % (0.0-5.0); BG FRACTION INSPIRED OXYGEN 32; BG HCO3 ACT 26.2 mmol/L (22.0-26.0); BG METHEMOGLOBIN 0.3 % (0.0-1.5); BG OXYGEN SATURATION 98.1 % (92.0-98.5); BG OXYHEMOGLOBIN 97.5 % (94.0-97.0); BG PCO2 32.4 mmHg (35.0-45.0); BG PH 7.526 (7.350-7.450); BG PO2 103.8 mmHg (75.0-100.0); BG SAMPLE SITE RIGHT BRACHIAL; BG TOTAL HEMOGLOBIN 11.6 g/dL (12.0-18.0); BG VENT MODE NASAL CANNULA
[2022-04-05] MEDS ORDERED: DOCUSATE SODIUM 250MG CAPSULE PO PRN (15:00)
[2022-04-05 16:00] VITALS: BP 112/78
[2022-04-05] MEDS: ENOXAPARIN 40MG/0.4ML SYR SUBCUT SCH (16:18)
[2022-04-05 20:00] VITALS: BP 140/65
[2022-04-05] MEDS: ATORVASTATIN CALCIUM 10MG TABLET PO SCH (21:10)
[2022-04-05] MEDS: INSULIN GLARGINE 100 UNITS/ML SUBCUT SCH (21:41)
[2022-04-05] MEDS: BUDESONIDE 0.5MG/2ML NEB HHN SCH (21:55)
[2022-04-06] VITALS: BP 121/68
[2022-04-06] MEDS: PIPERACILLIN/TAZOBACTAM 3.375 G in DEXTROSE 5% WATER 50 ML IV SCH ×2 (01:33→13:22)
[2022-04-06] MEDS: IPRATROPIUM BROMIDE (0.02%) 0.5MG/2.5ML NEB HHN SCH ×5 (02:01→21:17)
[2022-04-06 04:00] VITALS: BP 139/74
[2022-04-06] MEDS: GUAIFENESIN 200MG/10ML SUGAR FREE UDC PO SCH ×4 (05:21→18:13)
[2022-04-06] MEDS: NYSTATIN 100,000 UNITS/ML 5ML UDC SSW SCH ×4 (05:21→18:13)
[2022-04-06 07:16] LABS: BASOPHILS % 0.3 % (0.0-2.0); EOSINOPHILS % 1.1 % (0.0-5.0); HEMATOCRIT. 30.9 % (36.0-48.0); HEMOGLOBIN. 10.6 g/dL (12.0-16.0); MEAN CORPUSCULAR HEMOGLOBIN 35.2 pg (28.0-32.0); MEAN CORPUSCULAR VOLUME 102.8 fL (81.0-99.0); MEAN PLATELET VOLUME 7.9 fl (7.4-10.4); MONOCYTES % 4.5 % (2.0-8.0); NEUTROPHILS % 78.1 % (40.0-76.0); PLATELET 190 x1000/uL (130-400); RED BLOOD CELL COUNT 3.01 mill/uL (4.2-5.4); RED CELL DISTRIBUTION WIDTH 14.3 % (11.6-14.6)
[2022-04-06 08:00] VITALS: BP 131/72
[2022-04-06] MEDS: BLOOD SUGAR DIAGNOSTIC STRIP TEST SCH ×4 (08:17→21:56)
[2022-04-06] MEDS: CARVEDILOL 3.125 MG TABLET PO SCH ×2 (08:30→21:53)
[2022-04-06] MEDS: FLUCONAZOLE 200MG/5ML ORAL SYR PO SCH (08:30)
[2022-04-06] MEDS: INSULIN LISPRO 100 UNITS/ML SUBCUT SCH ×4 (08:39→21:56)
[2022-04-06] MEDS ORDERED: POTASSIUM CHLORIDE 20MEQ/PACKET PO NR (09:00)
[2022-04-06] MEDS: BUDESONIDE 0.5MG/2ML NEB HHN SCH ×2 (10:03→21:17)
[2022-04-06 12:00] VITALS: BP 129/84
[2022-04-06 16:00] VITALS: BP 114/58
[2022-04-06] MEDS: ENOXAPARIN 40MG/0.4ML SYR SUBCUT SCH (18:13)
[2022-04-06] MEDS: ATORVASTATIN CALCIUM 10MG TABLET PO SCH (21:53)
[2022-04-06] MEDS: INSULIN GLARGINE 100 UNITS/ML SUBCUT SCH (21:55)
[2022-04-07] VITALS: BP 153/78
[2022-04-07] MEDS: GUAIFENESIN 200MG/10ML SUGAR FREE UDC PO SCH ×2 (00:42→06:04)
[2022-04-07] MEDS: PIPERACILLIN/TAZOBACTAM 3.375 G in DEXTROSE 5% WATER 50 ML IV SCH (01:02)
[2022-04-07 04:00] VITALS: BP 148/72
[2022-04-07 06:24] LABS: BASOPHILS % 0.4 % (0.0-2.0); EOSINOPHILS % 1.3 % (0.0-5.0); HEMATOCRIT. 29.6 % (36.0-48.0); HEMOGLOBIN. 10.2 g/dL (12.0-16.0); LYMPHOCYTES % 17.6 % (20.0-50.0); MEAN CORPUSCULAR VOLUME 101.8 fL (81.0-99.0); MEAN PLATELET VOLUME 7.8 fl (7.4-10.4); MONOCYTES % 4.3 % (2.0-8.0); NEUTROPHILS % 76.4 % (40.0-76.0); PLATELET 215 x1000/uL (130-400); RED BLOOD CELL COUNT 2.91 mill/uL (4.2-5.4); RED CELL DISTRIBUTION WIDTH 14.1 % (11.6-14.6)
[2022-04-07 06:33] LABS: PHOSPHORUS 1.7 mg/dL (2.5-4.9)
[2022-04-07] MEDS: INSULIN LISPRO 100 UNITS/ML SUBCUT SCH (07:47)
[2022-04-07] MEDS: BLOOD SUGAR DIAGNOSTIC STRIP TEST SCH (07:47)
[2022-04-07 08:00] VITALS: BP 179/80
[2022-04-07] MEDS: CARVEDILOL 3.125 MG TABLET PO SCH (08:21)
[2022-04-07] MEDS: FLUCONAZOLE 200MG/5ML ORAL SYR PO SCH (08:21)
[2022-04-07] MEDS ORDERED: POTASSIUM-SODIUM PHOSPHATE POWDER PACKET PO NR (08:45)
[2022-04-07] MEDS: BUDESONIDE 0.5MG/2ML NEB HHN SCH (11:54)
[2022-04-07 11:58] VITALS: BP 118/57
[2022-04-07 12:00] VITALS: BP 111/70
== END 2022-04-07 12:35 | disposition hospice, home (50) | DRG 291 ==
LOC: ER 09:25 → EDBEDREQ 10:35 → EDBEDREQTM 10:35 → 7WST 22:43 → 6EST 04-03 06:21
PROVIDERS: ADMIT Internal Medicine Nephrology; ATTEND Internal Medicine Nephrology
PROC: 0W9B3ZZ Drainage of Left Pleural Cavity, Percutaneous Approach (ICD-10-PCS; principal; 2022-04-04)
PROC: 02HV33Z Insertion of Infusion Device into Superior Vena Cava, Percutaneous Approach (ICD-10-PCS; 2022-04-04)
PROC: B5181ZA Fluoroscopy of Superior Vena Cava using Low Osmolar Contrast, Guidance (ICD-10-PCS; 2022-04-04)
PROC: B548ZZA Ultrasonography of Superior Vena Cava, Guidance (ICD-10-PCS; 2022-04-04)
DX: I13.0 Hypertensive heart and chronic kidney disease with heart failure and stage 1 through stage 4 chronic kidney disease, or unspecified chronic kidney disease (principal); E43 Unspecified severe protein-calorie malnutrition; J96.01 Acute respiratory failure with hypoxia; I50.23 Acute on chronic systolic (congestive) heart failure; J18.9 Pneumonia, unspecified organism; E87.20 Acidosis, unspecified; T87.44 Infection of amputation stump, left lower extremity; J93.9 Pneumothorax, unspecified; G93.40 Encephalopathy, unspecified; B37.0 Candidal stomatitis; J91.8 Pleural effusion in other conditions classified elsewhere; I82.403 Acute embolism and thrombosis of unspecified deep veins of lower extremity, bilateral; B37.49 Other urogenital candidiasis; J98.11 Atelectasis; R65.10 Systemic inflammatory response syndrome (SIRS) of non-infectious origin without acute organ dysfunction; I42.9 Cardiomyopathy, unspecified; F02.80 Dementia in other diseases classified elsewhere, unspecified severity, without behavioral disturbance, psychotic disturbance, mood disturbance, and anxiety; G30.9 Alzheimer's disease, unspecified; E11.22 Type 2 diabetes mellitus with diabetic chronic kidney disease; N18.2 Chronic kidney disease, stage 2 (mild); E11.65 Type 2 diabetes mellitus with hyperglycemia; Z20.822 Contact with and (suspected) exposure to COVID-19; E11.649 Type 2 diabetes mellitus with hypoglycemia without coma; E11.51 Type 2 diabetes mellitus with diabetic peripheral angiopathy without gangrene; I25.10 Atherosclerotic heart disease of native coronary artery without angina pectoris; D53.9 Nutritional anemia, unspecified; E78.5 Hyperlipidemia, unspecified; I48.91 Unspecified atrial fibrillation; Z66 Do not resuscitate; D63.1 Anemia in chronic kidney disease; E78.00 Pure hypercholesterolemia, unspecified; Z96.649 Presence of unspecified artificial hip joint; Z89.612 Acquired absence of left leg above knee; Z51.5 Encounter for palliative care; Z79.899 Other long term (current) drug therapy; Z86.718 Personal history of other venous thrombosis and embolism; Z89.611 Acquired absence of right leg above knee; Z95.0 Presence of cardiac pacemaker; Y83.5 Amputation of limb(s) as the cause of abnormal reaction of the patient, or of later complication, without mention of misadventure at the time of the procedure
CPT/HCPCS: 32555; 36415; 36573; 36600; 71045; 71275; 76604; 78580; 80048; 80053; 80061; 80202; 81003; 82270; 82375; 82805; 82962; 83036; 83605; 83615; 83735; 83880; 84100; 84132; 84443; 84484; 85025; 85379; 87106; 87426; 87804; 88108; 90686; 90732; 93005; 93306; 93970; 94640; 99291; C1725; C1769; C1893; C9803; J1650; J1815; J1940; J2543; J3370; J3480; J3490; J7060; J7608; J7626; Q9967; A4315